=== PATIENT | female | born 1965 | race Hispanic/Latino ===

== ENCOUNTER 2018-04-16 17:46 | Inpatient (IN) | payer SELFPAY, OTHER | END 2018-04-19 18:46 | disposition home or self-care (01) | LOC: EDH 17:46 → EDHIP 17:47 → 4AH 23:29 | DX: I25.10 Atherosclerotic heart disease of native coronary artery without angina pectoris (principal); I10 Essential (primary) hypertension; E66.01 Morbid (severe) obesity due to excess calories; I25.2 Old myocardial infarction ==

== ENCOUNTER 2020-02-11 10:12 | Inpatient (IN) | payer OTHER, SELFPAY ==
[~2020-02-11] VITALS: Ht 152.4 cm; Wt 113.4 kg
[~2020-02-11 10:12] MED LIST: IRBE1TAB65 PO; OMEP40CA13 PO
[2020-02-11] MEDS ORDERED: ONDANSETRON HCL 4 MG/2 ML VIAL ONE ×2 (10:44→15:10)
[2020-02-11 10:47] LABS: BASOPHILS % (AUTO) 0.5 % (0.0-5.0); EOSINOPHILS % (AUTO) 0.3 % (0.0-8.0); HEMATOCRIT 43.2 % (36-48); LYMPHOCYTES % (AUTO) 30.5 % (21.0-51.0); MEAN CORPUSCULAR HEMOGLOBIN 27.3 pg (27.0-33.0); MEAN CORPUSCULAR HGB CONC 33.1 g/dL (32.0-36.0); MEAN CORPUSCULAR VOLUME 82.4 fL (79-99); MONOCYTES % (AUTO) 16.3 % (3.0-13.0); NEUTROPHILS % (AUTO) 50.4 % (40.0-77.0); PLATELET COUNT (AUTO) 287 K/uL (130-400); RED BLOOD CELL COUNT(AUTO) 5.24 MIL/uL (4.00-5.50); RED CELL DISTRIBUTION WIDTH 13.3 % (11.0-15.5); WHITE BLOOD COUNT (AUTO) 6.1 K/uL (4.8-10.8)
[2020-02-11 10:49] LABS: APPEARANCE,URINE Cloudy (CLEAR); BILIRUBIN,URINE Moderate (NEGATIVE); COLOR,URINE Dark Yellow (YELLOW); GLUCOSE, URINE (UA) Negative (NEGATIVE); KETONES,URINE 15 mg/dL (NEGATIVE); LEUKOCYTE ESTERASE ,URINE Negative (NEGATIVE); NITRATE,URINE Negative (NEGATIVE); OCCULT BLOOD,URINE Negative (NEGATIVE); PROTEIN,URINE Trace mg/dL (NEGATIVE)
[2020-02-11 11:01] LABS: ALBUMIN 3.7 g/dL (3.5-5.0); CREATININE 0.9 mg/dL (0.5-1.5); TOTAL PROTEIN, SERUM 8.5 g/dL (6.0-8.3)
[2020-02-11 11:03] LABS: POTASSIUM 2.9 mmol/L (3.5-5.1)
[2020-02-11 11:14] LABS: BACTERIA,URINE Rare /HPF (None Seen); RBC,URINE 0-1 /HPF (0-1); SQUAMOUS EPITHELIAL CELL,UR Rare /HPF (0-2); WBC,URINE 0-1 /HPF (0-1)
[2020-02-11] MEDS ORDERED: LIDOCAINE HCL 2% VISCOUS 15 ML UDCUP ONE (11:32)
[2020-02-11] MEDS ORDERED: PANTOPRAZOLE 40 MG/VIAL ONE (11:33)
[2020-02-11] MEDS ORDERED: MORPHINE SULFATE 2 MG/ML 1ML SYG ONE ×2 (11:33→15:10)
[2020-02-11] MEDS ORDERED: MAGNESIUM HYDROXIDE 30 ML/UDCUP ONE (11:33)
[2020-02-11] MEDS ORDERED: NS-20 MEQ KCL 1000ML 1,000 ML IV ONE ×2 (11:49→15:12)
[2020-02-11] MEDS ORDERED: IOHEXOL-350 75 ML VIAL IV ONE (12:47)
[2020-02-11] MEDS ORDERED: ACETAMINOPHEN 325 MG TAB PO PRN ×2 (16:15)
[2020-02-11] MEDS ORDERED: LIDOCAINE HCL 2% VISCOUS 30 ML, MAG HYDROX/AL HYDROX/SIMETH 30 ML, BELLADONNA-PHENOBARB... PO PRN ×3 (16:15)
[2020-02-11] MEDS ORDERED: MORPHINE SULFATE 4 MG/1ML SYG IV PRN (16:15)
[2020-02-11] MEDS ORDERED: MAG HYDROX/AL HYDROX/SIMETH ES 30 ML SUSP UDCUP PO PRN (16:15)
[2020-02-11] MEDS ORDERED: LIDO 2% VISC 30ML+MAG/AL/SIMETH 30ML+DICYCLOMINE 20MG 10ML PO PRN ×3 (16:30)
[2020-02-11] MEDS ORDERED: COMPOUND PO MISCELLANEOUS 1 EACH MISC MISC PRN (16:30)
[2020-02-11 20:17] LABS: CREATININE 0.7 mg/dL (0.5-1.5); POTASSIUM 3.7 mmol/L (3.5-5.1)
[2020-02-11] MEDS: FAMOTIDINE/PF 20 MG/2 ML VIAL IV SCH (21:00)
[2020-02-11] MEDS ORDERED: FAMOTIDINE/PF 20 MG/2 ML VIAL IV ONE (21:37)
[2020-02-12] MEDS ORDERED: ONDANSETRON HCL 4 MG/2 ML VIAL ONE (00:31)
[2020-02-12 01:30] VITALS: BP 155/71
[2020-02-12] MEDS ORDERED: SODIUM CHLORIDE 0.9% 1000ML 1,000 ML IV ONE ×2 (02:07→21:34)
[2020-02-12] MEDS: MORPHINE SULFATE 2 MG/ML 1ML SYG IV PRN ×2 (02:13→21:38)
[2020-02-12 04:00] VITALS: BP 139/59
[2020-02-12 04:43] LABS: BASOPHILS % (AUTO) 0.4 % (0.0-5.0); EOSINOPHILS % (AUTO) 0.6 % (0.0-8.0); HEMATOCRIT 35.5 % (36-48); LYMPHOCYTES % (AUTO) 34.5 % (21.0-51.0); MEAN CORPUSCULAR HEMOGLOBIN 26.9 pg (27.0-33.0); MEAN CORPUSCULAR HGB CONC 31.5 g/dL (32.0-36.0); MEAN CORPUSCULAR VOLUME 85.3 fL (79-99); MONOCYTES % (AUTO) 17.7 % (3.0-13.0); NEUTROPHILS % (AUTO) 45.1 % (40.0-77.0); PLATELET COUNT (AUTO) 223 K/uL (130-400); RED BLOOD CELL COUNT(AUTO) 4.16 MIL/uL (4.00-5.50); RED CELL DISTRIBUTION WIDTH 13.5 % (11.0-15.5); WHITE BLOOD COUNT (AUTO) 5.3 K/uL (4.8-10.8)
[2020-02-12 04:56] LABS: CREATININE 0.7 mg/dL (0.5-1.5); POTASSIUM 3.3 mmol/L (3.5-5.1)
[2020-02-12 08:46] VITALS: BP 139/81
[2020-02-12] MEDS ORDERED: AMLO-257 PO (10:07)
[2020-02-12] MEDS: FAMOTIDINE/PF 20 MG/2 ML VIAL IV SCH ×3 (10:13→21:37)
[2020-02-12] MEDS: ENOXAPARIN SODIUM 30 MG/0.3 ML SQ SCH (10:13)
[2020-02-12 10:47] LABS: ALBUMIN 2.8 g/dL (3.5-5.0); BILIRUBIN,DIRECT 0.3 mg/dL (0.0-0.3); BILIRUBIN,TOTAL 0.7 mg/dL (0.2-1.0); TOTAL PROTEIN, SERUM 6.3 g/dL (6.0-8.3)
[2020-02-12 11:57] VITALS: BP 144/76
[2020-02-12] MEDS ORDERED: GADODIAMIDE 10 MMOL/20 ML VIAL IV ONE (13:18)
--- NOTE | 2020-02-12 15:16 | NUR ---
RD NOTIFICATION Pt admitted with Hypokalemia and Intractable Nausea. History of Lap Band x 20yrs ago. Intractable nausea x 10 days. Upon visit, Pt reports being able to eat today and hold food down. No signs of food intolerances at this time. Pt with normal consistency BM, although somewhat frequent as per Pt; Recommend to monitor. Pt also reports upper abdomen pain resolved for first time in several days; morphine in place. Monitored labs: K 3.3, Ca 7.0, AST 168, ALT 174, Alk 195, Alb 2.8. Recommend continue GI Soft/ [place] diet at this time. Will monitor and consider 4 to 6 small meals per day. Recommend daily multivitamin as medically feasible RD to continue to monitor. Please notify as additional nutrition concerns arise. Thank you.
[2020-02-12 16:22] VITALS: BP 113/68
--- NOTE | 2020-02-12 16:53 | NUR ---
VERONICA NOTE/IA MET WITH PATIENT AT BEDSIDE. PER PATIENT, LIVES WITH 2 ADULT DAUGHTERS, IS INDEPENDENT WITH ADLS, NO USE OF HOME HEALTH/PROVIDERS OR DME, AND FEELS SAFE TO RETURN HOME. Addendum: 02/12/20 at 1654 by MED SKY RN CM Amended: Links added.
[2020-02-12 20:00] VITALS: BP 147/71
[2020-02-12] MEDS: NS-20 MEQ KCL 1000ML 1,000 ML IV SCH (22:55)
[2020-02-13] VITALS: BP 123/73
[2020-02-13 04:00] VITALS: BP 133/80
[2020-02-13 04:40] LABS: BASOPHILS % (AUTO) 0.5 % (0.0-5.0); EOSINOPHILS % (AUTO) 1.4 % (0.0-8.0); LYMPHOCYTES % (AUTO) 40.1 % (21.0-51.0); MEAN CORPUSCULAR HEMOGLOBIN 27.3 pg (27.0-33.0); MEAN CORPUSCULAR VOLUME 85.4 fL (79-99); MONOCYTES % (AUTO) 17.3 % (3.0-13.0); NEUTROPHILS % (AUTO) 38.9 % (40.0-77.0); PLATELET COUNT (AUTO) 253 K/uL (130-400); RED CELL DISTRIBUTION WIDTH 13.8 % (11.0-15.5); WHITE BLOOD COUNT (AUTO) 4.3 K/uL (4.8-10.8)
[2020-02-13 05:02] LABS: ALBUMIN 2.9 g/dL (3.5-5.0); BILIRUBIN,TOTAL 0.5 mg/dL (0.2-1.0); CREATININE 0.6 mg/dL (0.5-1.5); POTASSIUM 3.5 mmol/L (3.5-5.1)
[2020-02-13 05:31] LABS: TOTAL PROTEIN, SERUM 6.5 g/dL (6.0-8.3)
[2020-02-13] MEDS: NS-20 MEQ KCL 1000ML 1,000 ML IV SCH ×2 (05:45→20:25)
--- NOTE | 2020-02-13 07:58 | NUR ---
DR. FERREIRA IN TO SEE PT.PLAN TO DISCHARGE HOWEVER PT. C/O OF NAUSEA, ORDER TO DC PEPCID AND START ON PROTONIX. WAIT UNTIL THIS PM TO SEE IF FEELS BETTER .
[2020-02-13] MEDS ORDERED: PANT40TA55 PO (07:59)
[2020-02-13 08:00] VITALS: BP 135/73
[2020-02-13 08:15] LABS: HEPATITIS A ANTIBODY IGM Negative (Negative); HEPATITIS B CORE IGM Negative (Negative); HEPATITIS Bs ANTIGEN SCREEN P Negative (Negative)
[2020-02-13] MEDS: PANTOPRAZOLE SODIUM 40 MG TABLET.DR PO SCH (08:20)
[2020-02-13] MEDS: AMLODIPINE BESYLATE 5 MG TAB PO SCH (08:20)
[2020-02-13] MEDS: ENOXAPARIN SODIUM 30 MG/0.3 ML SQ SCH ×2 (08:21→21:47)
--- NOTE | 2020-02-13 11:24 | NUR ---
CONTINUES WITH NAUSEA AND ABD. PAIN. STATES SOON SHE ATE THE NAUSEA CAME BACK.
[2020-02-13] MEDS: ONDANSETRON HCL 4 MG/2 ML VIAL IV PRN (11:57)
[2020-02-13 12:00] VITALS: BP 142/78
[2020-02-13 16:00] VITALS: BP 137/77
--- NOTE | 2020-02-13 16:16 | NUR ---
DR. SKY OFFICE CALLED BACK. REQUESTING INFO.WILL CALL BACK ORDERS.
--- NOTE | 2020-02-13 18:00 | NUR ---
ORDERS RECEIVED FROM DR. SKY. PT. TO SCHEDULED FOR EGD WITH MAC FOR TOMORROW AROUND 1200 NOON. ORDER SEND TO STOCK PARTS FABRICATOR
[2020-02-13 20:39] VITALS: BP 130/71
[2020-02-14] VITALS (14 sets, daily range): BP systolic 114–153; BP diastolic 59–83
[2020-02-14 05:40] LABS: BASOPHILS % (AUTO) 0.3 % (0.0-5.0); EOSINOPHILS % (AUTO) 1.8 % (0.0-8.0); HEMATOCRIT 34.3 % (36-48); LYMPHOCYTES % (AUTO) 36.8 % (21.0-51.0); MEAN CORPUSCULAR HEMOGLOBIN 27.1 pg (27.0-33.0); MEAN CORPUSCULAR HGB CONC 31.5 g/dL (32.0-36.0); MONOCYTES % (AUTO) 18.3 % (3.0-13.0); NEUTROPHILS % (AUTO) 41.6 % (40.0-77.0); PLATELET COUNT (AUTO) 239 K/uL (130-400); RED BLOOD CELL COUNT(AUTO) 3.99 MIL/uL (4.00-5.50); RED CELL DISTRIBUTION WIDTH 13.9 % (11.0-15.5); WHITE BLOOD COUNT (AUTO) 3.3 K/uL (4.8-10.8)
[2020-02-14] MEDS: PANTOPRAZOLE SODIUM 40 MG TABLET.DR PO SCH ×2 (05:42→08:09)
[2020-02-14 06:03] LABS: CREATININE 0.7 mg/dL (0.5-1.5); POTASSIUM 3.6 mmol/L (3.5-5.1)
[2020-02-14] MEDS: NS-20 MEQ KCL 1000ML 1,000 ML IV SCH ×2 (07:20→19:32)
[2020-02-14] MEDS: AMLODIPINE BESYLATE 5 MG TAB PO SCH (08:09)
[2020-02-14] MEDS: ONDANSETRON HCL 4 MG/2 ML VIAL IV PRN (08:09)
--- NOTE | 2020-02-14 08:27 | NUR ---
AM SHIFT ASSESSMENT:NPO FOR EGD TODAY.
--- NOTE | 2020-02-14 11:05 | NUR ---
TO GI LAB NOW.
[2020-02-14] MEDS ORDERED: PROPOFOL 10 MG/ML 20ML VIAL IV ONE (11:39)
--- NOTE | 2020-02-14 12:30 | NUR ---
POST OP NOTE: BACK FROM GI LAB, AWAKE, HUNGRY .POST OP V/S STARTED. ASST. TO BR FOR A VOID.
--- NOTE | 2020-02-14 13:20 | NUR ---
FULL LIQ, DIET ORDERED AND TOLERATED.
--- NOTE | 2020-02-14 14:30 | NUR ---
RAD. DEPT. CALLED AND SAID UPPER GIWITH SM BOWEL FOLLOW THROUGH WOULD NOT BE DONE UNTIL SUNDAY. WILL LET DR. FERREIRA KNOW AN SEE IF HE WANTS TO CX. NPO STATUS.
[2020-02-15 03:57] VITALS: BP 118/51
[2020-02-15 05:55] LABS: BASOPHILS % (AUTO) 0.3 % (0.0-5.0); EOSINOPHILS % (AUTO) 1.2 % (0.0-8.0); HEMATOCRIT 33.1 % (36-48); LYMPHOCYTES % (AUTO) 39.6 % (21.0-51.0); MEAN CORPUSCULAR HEMOGLOBIN 27.1 pg (27.0-33.0); MEAN CORPUSCULAR HGB CONC 31.4 g/dL (32.0-36.0); MEAN CORPUSCULAR VOLUME 86.2 fL (79-99); PLATELET COUNT (AUTO) 237 K/uL (130-400); RED BLOOD CELL COUNT(AUTO) 3.84 MIL/uL (4.00-5.50); RED CELL DISTRIBUTION WIDTH 13.9 % (11.0-15.5); WHITE BLOOD COUNT (AUTO) 3.2 K/uL (4.8-10.8)
[2020-02-15 06:36] LABS: CREATININE 0.6 mg/dL (0.5-1.5)
[2020-02-15 08:00] VITALS: BP 119/78
[2020-02-15] MEDS: AMLODIPINE BESYLATE 5 MG TAB PO SCH (09:02)
[2020-02-15] MEDS: NS-20 MEQ KCL 1000ML 1,000 ML IV SCH ×2 (10:29→20:15)
[2020-02-15 12:00] VITALS: BP 125/57
[2020-02-15 16:00] VITALS: BP 152/74
[2020-02-15 20:04] VITALS: BP 122/64
--- NOTE | 2020-02-15 21:00 | NUR ---
CALLED [facility] FOR PATIENT'S NS WITH 20 MEQ OF KCL SINCE HER POTASSIUM WAS 4 IN THE AM ON 02/15/20. SHE ORDERED TO CONTINUE THOSE FLUIDS BUT CHANGE THE RATE FROM 100 ML/HR TO 50 ML/HR.
[2020-02-16 00:54] VITALS: BP 135/69
[2020-02-16 03:57] VITALS: BP 146/69
[2020-02-16] MEDS: PANTOPRAZOLE SODIUM 40 MG TABLET.DR PO SCH (05:03)
[2020-02-16 07:37] LABS: MEAN CORPUSCULAR HEMOGLOBIN 27.2 pg (27.0-33.0); MEAN CORPUSCULAR HGB CONC 31.4 g/dL (32.0-36.0); MEAN CORPUSCULAR VOLUME 86.5 fL (79-99); PLATELET COUNT (AUTO) 264 K/uL (130-400); RED BLOOD CELL COUNT(AUTO) 4.16 MIL/uL (4.00-5.50); WHITE BLOOD COUNT (AUTO) 3.2 K/uL (4.8-10.8)
[2020-02-16 07:49] LABS: CREATININE 0.7 mg/dL (0.5-1.5); POTASSIUM 4.1 mmol/L (3.5-5.1)
[2020-02-16 08:00] VITALS: BP 142/82
[2020-02-16] MEDS: AMLODIPINE BESYLATE 5 MG TAB PO SCH (08:44)
[2020-02-16 09:43] LABS: BASOPHILS % (MANUAL) 1 % (0-2); LYMPHOCYTES % (MANUAL) 29 % (22-44); MAN.DIFF COMMENT-IMPRESSION MANUAL DIFFERENTIAL; MONOCYTES % (MANUAL) 15 % (2-9); SEGMENTED NEUTROPHILS % 55 % (40-70)
[2020-02-16 09:44] LABS: PLATELET MORPHOLOGY COMMENT ADEQUATE
[2020-02-16 12:00] VITALS: BP 144/76
[2020-02-16 12:48] VITALS: BP 144/76
[2020-02-16] MEDS ORDERED: FLU VACC QS2020-21(6MOS UP)/PF 60 MCG/0.5 ML ML IM ONE ×2 (15:25→15:30)
--- NOTE | 2020-02-16 15:27 | NUR ---
FLU INJECTION FLUZONE QUADRIVALENT L: [id number] E: aug 16
[2020-02-16] MEDS ORDERED: FLU VACC QS2020-21(6MOS UP)/PF 60 MCG/0.5 ML ML IM SCH (15:30)
--- NOTE | 2020-02-16 15:49 | NUR ---
D/C PT IS AA/OX4 NO COMPLAINS OF CP, SOB, OR NAUSEA, PT RECIEVED FLU SHOT AND F/U APPT FOR DR. SEAY. ALSO SHE IS AWARE TO MAKE APPT WITH PRIMARY IN 2-3 DAYS. RX SCRIPT GIVEN TO PATIENT DAUGHTER IS ALSO AWARE OF D/C INSTRUCTIONS. NO COMPLICATIONS UPON D.C PT LEFT IN PVT CAR BY WHEELCHAIR.
== END 2020-02-16 15:40 | disposition home or self-care (01) | DRG 641 ==
LOC: EDH 10:12 → EDHIP 10:13 → 3CH 02-12 00:07
PROVIDERS: ADMIT Hospitalist; ATTEND Hospitalist
PROC: 0DB58ZX Excision of Esophagus, Via Natural or Artificial Opening Endoscopic, Diagnostic (ICD-10-PCS; principal; 2020-02-14)
PROC: 0DB68ZX Excision of Stomach, Via Natural or Artificial Opening Endoscopic, Diagnostic (ICD-10-PCS; 2020-02-14)
PROC: 3E02340 Introduction of Influenza Vaccine into Muscle, Percutaneous Approach (ICD-10-PCS; 2020-02-16)
DX: E87.6 Hypokalemia (principal); Z68.42 Body mass index [BMI] 45.0-49.9, adult; K95.09 Other complications of gastric band procedure; E66.01 Morbid (severe) obesity due to excess calories; E03.9 Hypothyroidism, unspecified; I10 Essential (primary) hypertension; K29.50 Unspecified chronic gastritis without bleeding; R74.8 Abnormal levels of other serum enzymes; Y84.8 Other medical procedures as the cause of abnormal reaction of the patient, or of later complication, without mention of misadventure at the time of the procedure; Z23 Encounter for immunization; Z80.0 Family history of malignant neoplasm of digestive organs; Z80.49 Family history of malignant neoplasm of other genital organs; Z82.49 Family history of ischemic heart disease and other diseases of the circulatory system; Z90.710 Acquired absence of both cervix and uterus; Z98.84 Bariatric surgery status; Z83.3 Family history of diabetes mellitus; Z82.5 Family history of asthma and other chronic lower respiratory diseases
CPT/HCPCS: 36415; 43239; 74177; 74181; 80048; 80053; 80074; 80076; 81001; 82150; 83690; 85025; 93005; A9579; C9113; G0378; J1650; J2405; J2704; J3480; J3490; J7030; Q2035; Q9967

== ENCOUNTER 2021-03-07 06:38 | Day surgery (SDC) | payer OTHER ==
[~2021-03-07] VITALS: Ht 154.9 cm; Wt 114.8 kg
[~2021-03-07 06:38] MED LIST changes: +AMLO-257 PO; -OMEP40CA13 PO; +PANT40TA55 PO
[2021-03-07] MEDS ORDERED: 0.9%NACL 1000ML 1,000 ML IV ONE (07:15)
[2021-03-07 08:06] VITALS: BP 146/74
[2021-03-07] MEDS ORDERED: PROPOFOL 10 MG/ML 20ML VIAL IV ONE (08:54)
[2021-03-07 09:07] VITALS: BP 101/47
[2021-03-07 09:12] VITALS: BP 118/61
[2021-03-07 09:17] VITALS: BP 123/69
[2021-03-07 09:22] VITALS: BP 140/78
[2021-03-07 09:27] VITALS: BP 144/70
== END 2021-03-07 09:30 | disposition home or self-care (01) ==
LOC: ENDO 06:38 → DAH 06:38 → ENDO 09:30
PROVIDERS: ATTEND Surgery
DX: K21.9 Gastro-esophageal reflux disease without esophagitis (principal); Z20.822 Contact with and (suspected) exposure to COVID-19; K29.50 Unspecified chronic gastritis without bleeding; K31.89 Other diseases of stomach and duodenum; I10 Essential (primary) hypertension; E66.01 Morbid (severe) obesity due to excess calories; Z90.49 Acquired absence of other specified parts of digestive tract; Z90.710 Acquired absence of both cervix and uterus; Z98.84 Bariatric surgery status; Z82.49 Family history of ischemic heart disease and other diseases of the circulatory system; Z83.3 Family history of diabetes mellitus; Z98.890 Other specified postprocedural states; Z80.0 Family history of malignant neoplasm of digestive organs; Z68.42 Body mass index [BMI] 45.0-49.9, adult
CPT/HCPCS: 43239; 87635; A4215 ×2; A4221; A4222; A4223; A4606; A4620; A4663; C9803; J2704; J7030; 43235

== ENCOUNTER 2021-04-11 06:32 | Inpatient (IN) | payer OTHER, SELFPAY ==
[2021-04-04 08:54] LABS: BASOPHILS % (AUTO) 0.4 % (0.0-5.0); EOSINOPHILS % (AUTO) 1.4 % (0.0-8.0); HEMATOCRIT 37.2 % (36-48); LYMPHOCYTES % (AUTO) 25.8 % (21.0-51.0); MEAN CORPUSCULAR HEMOGLOBIN 26.7 pg (27.0-33.0); MEAN CORPUSCULAR HGB CONC 31.2 g/dL (32.0-36.0); MEAN CORPUSCULAR VOLUME 85.5 fL (79-99); MONOCYTES % (AUTO) 5.2 % (3.0-13.0); NEUTROPHILS % (AUTO) 66.1 % (40.0-77.0); PLATELET COUNT (AUTO) 242 K/uL (130-400); RED BLOOD CELL COUNT(AUTO) 4.35 MIL/uL (4.00-5.50); RED CELL DISTRIBUTION WIDTH 14.1 % (11.0-15.5); WHITE BLOOD COUNT (AUTO) 7.1 K/uL (4.8-10.8)
[2021-04-04 09:03] LABS: CREATININE 0.7 mg/dL (0.5-1.5); POTASSIUM 3.5 mmol/L (3.5-5.1)
[2021-04-04 09:06] LABS: PROTHROMBIN TIME 10.9 SEC (9.6-11.6)
[2021-04-04 09:08] LABS: PARTIAL THROMBOPLASTIN TIME 26.8 SEC (26.3-35.5)
[2021-04-08 11:49] VITALS: BP 150/76
[~2021-04-11] VITALS: Ht 154.9 cm; Wt 109.3 kg
[2021-04-11] VITALS (24 sets, daily range): BP systolic 80–152; BP diastolic 38–83
[2021-04-11] MEDS ORDERED: BUPIVACAINE/PF 0.5% 30ML VIAL ONE (07:27)
[2021-04-11] MEDS ORDERED: LACTATED RINGERS 1000ML 1,000 ML IV ONE (07:32)
[2021-04-11] MEDS ORDERED: CEFAZOLIN SODIUM 1 GM VIAL ONE (07:32)
[2021-04-11] MEDS ORDERED: LIDOCAINE PF 100MG/5ML (2%) SYRINGE 5ML ONE (07:33)
[2021-04-11] MEDS ORDERED: GLYCOPYRROLATE 1 MG/5 ML SYRINGE ONE (07:33)
[2021-04-11] MEDS ORDERED: PROPOFOL 10 MG/ML 20ML VIAL IV ONE (07:33)
[2021-04-11] MEDS ORDERED: NEOSTIGMINE 5MG/5ML SYR IV ONE (07:33)
[2021-04-11] MEDS ORDERED: MIDAZOLAM HCL 1 MG/ML 2ML VIAL ONE (07:34)
[2021-04-11] MEDS ORDERED: FENTANYL CITRATE PF 50 MCG/1 ML 5ML AMP IV ONE (07:34)
[2021-04-11] MEDS ORDERED: ROCURONIUM 10MG/1ML SYR 10 MG/ML ML ONE ×2 (07:34→09:13)
[2021-04-11] MEDS ORDERED: DEXMEDETOMIDINE HCL 200 MCG/2 ML VIAL IV ONE ×2 (07:42→08:01)
[2021-04-11] MEDS ORDERED: CEFAZOLIN SODIUM 2 GM VIAL IV ONE (08:50)
[2021-04-11] MEDS ORDERED: ONDANSETRON 4MG INJ ONE (12:00)
[2021-04-11] MEDS ORDERED: MEPERIDINE-PF 25 MG/ML SYG ONE ×2 (12:04→12:17)
[2021-04-11] MEDS: KETOROLAC 30MG VIAL (30MG/ML) IV PRN ×2 (13:33→22:18)
[2021-04-11] MEDS: CEFAZOLIN SODIUM 1 GM VIAL IVP SCH ×2 (15:10→22:04)
[2021-04-11] MEDS: MORPHINE 4 MG SYG IVP PRN ×2 (15:11→20:28)
[2021-04-11] MEDS: LACTATED RINGERS 1000ML 1,000 ML IV SCH (15:25)
[2021-04-11] MEDS: FAMOTIDINE 20MG VIAL IV SCH (20:27)
[2021-04-12] VITALS: BP 164/83
[2021-04-12] MEDS: MORPHINE 4 MG SYG IVP PRN ×4 (03:37→17:11)
[2021-04-12 04:00] VITALS: BP 160/80
[2021-04-12] MEDS: KETOROLAC 30MG VIAL (30MG/ML) IV PRN ×3 (06:31→20:06)
[2021-04-12] MEDS: FAMOTIDINE 20MG VIAL IV SCH ×2 (07:40→20:05)
[2021-04-12 07:53] VITALS: BP 158/80
[2021-04-12] MEDS: ONDANSETRON 4MG INJ IVP PRN ×2 (08:41→16:23)
[2021-04-12 11:11] VITALS: BP 162/99
[2021-04-12] MEDS: ENOXAPARIN SODIUM 40 MG/0.4 ML SYRINGE SQ SCH (14:23)
[2021-04-12 16:17] VITALS: BP 163/103
[2021-04-12] MEDS ORDERED: AMLODIPINE 2.5 MG TAB PO SCH (16:30)
[2021-04-12] MEDS ORDERED: AMLODIPINE 2.5 MG TAB PO ONE (16:59)
[2021-04-12 19:00] VITALS: BP 134/72
[2021-04-12] MEDS: LACTATED RINGERS 1000ML 1,000 ML IV SCH (20:10)
[2021-04-13] VITALS (7 sets, daily range): BP systolic 93–155; BP diastolic 42–73
[2021-04-13] MEDS: MORPHINE 4 MG SYG IVP PRN ×4 (00:30→15:11)
[2021-04-13] MEDS: KETOROLAC 30MG VIAL (30MG/ML) IV PRN (02:23)
[2021-04-13] MEDS: LACTATED RINGERS 1000ML 1,000 ML IV SCH ×3 (05:30→19:43)
[2021-04-13] MEDS: LOSARTAN/HYDROCHLOROTHIAZIDE 50-12.5MG TABLET PO SCH (09:00)
[2021-04-13] MEDS: AMLODIPINE 2.5 MG TAB PO SCH (09:00)
[2021-04-13 09:18] LABS: HEMATOCRIT 33.5 % (36-48); MEAN CORPUSCULAR HGB CONC 30.4 g/dL (32.0-36.0); MEAN CORPUSCULAR VOLUME 88.6 fL (79-99); PLATELET COUNT (AUTO) 248 K/uL (130-400); RED BLOOD CELL COUNT(AUTO) 3.78 MIL/uL (4.00-5.50); RED CELL DISTRIBUTION WIDTH 14.9 % (11.0-15.5); WHITE BLOOD COUNT (AUTO) 22.3 K/uL (4.8-10.8)
[2021-04-13] MEDS ORDERED: 0.9% NACL 500ML IV.SOLN 500 ML IV ONE (09:25)
[2021-04-13 09:26] LABS: CREATININE 2.9 mg/dL (0.5-1.5); POTASSIUM 4.1 mmol/L (3.5-5.1)
[2021-04-13 09:31] LABS: ALBUMIN 2.8 g/dL (3.5-5.0); BILIRUBIN,TOTAL 0.9 mg/dL (0.2-1.0)
[2021-04-13 09:57] LABS: BAND NEUTROPHILS % (MANUAL) 6 % (0-2); LYMPHOCYTES % (MANUAL) 7 % (22-44); MAN.DIFF COMMENT-IMPRESSION MANUAL DIFFERENTIAL; MONOCYTES % (MANUAL) 5 % (2-9); PLATELET MORPHOLOGY COMMENT ADEQUATE; SEGMENTED NEUTROPHILS % 82 % (40-70)
[2021-04-13] MEDS: FAMOTIDINE 20MG VIAL IV SCH ×2 (10:05→19:37)
[2021-04-13] MEDS ORDERED: ZOSYN 3.375GM +NS 50ML IV SCH (10:30)
[2021-04-13] MEDS: ZOSYN 3.375GM+NS 50ML 50 ML IV SCH ×2 (12:00→19:37)
[2021-04-13] MEDS ORDERED: LACTATED RINGERS 1000ML IV ONE (18:30)
[2021-04-13] MEDS: ENOXAPARIN SODIUM 40 MG/0.4 ML SYRINGE SQ SCH (18:40)
[2021-04-14] MEDS: HYDROMORPHONE 1 MG INJ IVP PRN ×5 (00:04→15:30)
[2021-04-14 04:00] VITALS: BP 150/69
[2021-04-14 04:12] LABS: BASOPHILS % (AUTO) 0.1 % (0.0-5.0); HEMATOCRIT 30.9 % (36-48); LYMPHOCYTES % (AUTO) 5.7 % (21.0-51.0); MEAN CORPUSCULAR HEMOGLOBIN 26.8 pg (27.0-33.0); MEAN CORPUSCULAR HGB CONC 30.1 g/dL (32.0-36.0); MONOCYTES % (AUTO) 5.7 % (3.0-13.0); NEUTROPHILS % (AUTO) 87.5 % (40.0-77.0); PLATELET COUNT (AUTO) 238 K/uL (130-400); RED BLOOD CELL COUNT(AUTO) 3.47 MIL/uL (4.00-5.50); RED CELL DISTRIBUTION WIDTH 15.4 % (11.0-15.5); WHITE BLOOD COUNT (AUTO) 18.1 K/uL (4.8-10.8)
[2021-04-14 04:27] LABS: CREATININE 2.7 mg/dL (0.5-1.5); POTASSIUM 4.1 mmol/L (3.5-5.1)
[2021-04-14] MEDS: LACTATED RINGERS 1000ML 1,000 ML IV SCH ×3 (05:02→20:47)
[2021-04-14 08:00] VITALS: BP 131/95
[2021-04-14] MEDS: ENOXAPARIN SODIUM 40 MG/0.4 ML SYRINGE SQ SCH (09:00)
[2021-04-14] MEDS: FAMOTIDINE 20MG VIAL IV SCH ×2 (09:09→20:46)
[2021-04-14] MEDS: ZOSYN 3.375GM+NS 50ML 50 ML IV SCH ×2 (09:10→20:46)
[2021-04-14] MEDS: LOSARTAN/HYDROCHLOROTHIAZIDE 50-12.5MG TABLET PO SCH (09:10)
[2021-04-14] MEDS: AMLODIPINE 2.5 MG TAB PO SCH (09:10)
[2021-04-14] MEDS ORDERED: DIATR MEGLU/DIATRIZOATE SODIUM 30 ML BOTTLE ONE (11:23)
[2021-04-14 12:05] VITALS: BP 127/67
[2021-04-14 16:00] VITALS: BP 112/62
[2021-04-14] MEDS ORDERED: LACTATED RINGERS 1000ML IV ONE (18:00)
[2021-04-14 19:00] VITALS: BP 111/65
[2021-04-14] MEDS: KETOROLAC 30MG VIAL (30MG/ML) IV PRN (20:47)
[2021-04-15] VITALS: BP 121/62
[2021-04-15] MEDS: HYDROMORPHONE 1 MG INJ IVP PRN ×6 (00:09→20:57)
[2021-04-15] MEDS ORDERED: LACTATED RINGERS 1000ML IV ONE (01:30)
[2021-04-15 04:00] VITALS: BP 145/73
[2021-04-15] MEDS: LACTATED RINGERS 1000ML 1,000 ML IV SCH ×3 (04:55→21:30)
[2021-04-15 05:01] LABS: HEMATOCRIT 27.1 % (36-48); MEAN CORPUSCULAR HEMOGLOBIN 26.5 pg (27.0-33.0); MEAN CORPUSCULAR HGB CONC 30.3 g/dL (32.0-36.0); MEAN CORPUSCULAR VOLUME 87.4 fL (79-99); RED BLOOD CELL COUNT(AUTO) 3.1 MIL/uL (4.00-5.50); RED CELL DISTRIBUTION WIDTH 15.8 % (11.0-15.5); WHITE BLOOD COUNT (AUTO) 17.6 K/uL (4.8-10.8)
[2021-04-15 05:13] LABS: ALBUMIN 2.1 g/dL (3.5-5.0); TOTAL PROTEIN, SERUM 6.7 g/dL (6.0-8.3)
[2021-04-15 07:30] VITALS: BP 163/89
[2021-04-15] MEDS: ONDANSETRON 4MG INJ IVP PRN (08:25)
[2021-04-15] MEDS: LOSARTAN/HYDROCHLOROTHIAZIDE 50-12.5MG TABLET PO SCH (09:00)
[2021-04-15] MEDS: ENOXAPARIN SODIUM 40 MG/0.4 ML SYRINGE SQ SCH (09:00)
[2021-04-15] MEDS ORDERED: FUROSEMIDE 40MG VIAL IV SCH (09:00)
[2021-04-15] MEDS ORDERED: 0.9%NACL 1000ML 1,000 ML IV ONE (09:00)
[2021-04-15] MEDS: FAMOTIDINE 20MG VIAL IV SCH ×2 (09:07→20:57)
[2021-04-15] MEDS: AMLODIPINE 2.5 MG TAB PO SCH (09:07)
[2021-04-15] MEDS: ZOSYN 3.375GM+NS 50ML 50 ML IV SCH ×2 (09:09→20:57)
[2021-04-15 11:00] VITALS: BP 129/82
[2021-04-15 16:05] VITALS: BP 142/75
[2021-04-15 17:50] LABS: APPEARANCE,URINE SL CLOUDY (CLEAR); BILIRUBIN,URINE SMALL (NEGATIVE); COLOR,URINE YELLOW (YELLOW); GLUCOSE, URINE (UA) NEGATIVE (NEGATIVE); KETONES,URINE NEGATIVE (NEGATIVE); LEUKOCYTE ESTERASE ,URINE NEGATIVE (NEGATIVE); NITRATE,URINE NEGATIVE (NEGATIVE); OCCULT BLOOD,URINE MODERATE (NEGATIVE); PH,URINE 5.5 (5.0-8.0); PROTEIN,URINE 30 mg/dL (NEGATIVE); UROBILINOGEN,URINE 0.2 mg/dL (0.2-1.0)
[2021-04-15 17:57] LABS: BACTERIA,URINE Few /HPF (None Seen); WBC,URINE 0-1 /HPF (0-1)
[2021-04-15 17:58] LABS: AMORPHOUS SEDIMENT,UR Few /LPF (None Seen); SQUAMOUS EPITHELIAL CELL,UR Rare /HPF (0-2)
[2021-04-15 18:25] LABS: CREATININE 3.7 mg/dL (0.5-1.5); POTASSIUM 3.7 mmol/L (3.5-5.1)
[2021-04-15 18:28] LABS: ALBUMIN 2.2 g/dL (3.5-5.0); PHOSPHORUS 4.5 mg/dL (2.5-4.9)
[2021-04-15 20:23] VITALS: BP 161/76
[2021-04-16] VITALS (7 sets, daily range): BP systolic 121–166; BP diastolic 69–90
[2021-04-16] MEDS: HYDROMORPHONE 1 MG INJ IVP PRN ×3 (00:05→09:56)
[2021-04-16] MEDS: ONDANSETRON 4MG INJ IVP PRN ×2 (00:05→23:40)
[2021-04-16 05:09] LABS: ALBUMIN 2.1 g/dL (3.5-5.0); PHOSPHORUS 4.9 mg/dL (2.5-4.9); POTASSIUM 3.4 mmol/L (3.5-5.1)
[2021-04-16] MEDS: LOSARTAN/HYDROCHLOROTHIAZIDE 50-12.5MG TABLET PO SCH ×2 (09:00→09:53)
[2021-04-16] MEDS: FAMOTIDINE 20MG VIAL IV SCH ×2 (09:53→19:56)
[2021-04-16] MEDS: FUROSEMIDE 20 MG TABLET PO SCH (09:53)
[2021-04-16] MEDS: ZOSYN 3.375GM+NS 50ML 50 ML IV SCH ×2 (09:53→19:56)
[2021-04-16] MEDS: AMLODIPINE 2.5 MG TAB PO SCH (09:53)
[2021-04-16] MEDS: ENOXAPARIN SODIUM 40 MG/0.4 ML SYRINGE SQ SCH (10:16)
[2021-04-16] MEDS: APAP/CODEINE 120/12MG 5ML PO PRN ×3 (14:47→23:31)
[2021-04-17] MEDS: HYDROMORPHONE 1 MG INJ IVP PRN ×3 (03:26→21:50)
[2021-04-17 03:49] VITALS: BP 152/76
[2021-04-17 05:07] LABS: BASOPHILS % (AUTO) 0.3 % (0.0-5.0); EOSINOPHILS % (AUTO) 0.3 % (0.0-8.0); HEMATOCRIT 27.3 % (36-48); LYMPHOCYTES % (AUTO) 7.9 % (21.0-51.0); MEAN CORPUSCULAR HEMOGLOBIN 27.2 pg (27.0-33.0); MEAN CORPUSCULAR HGB CONC 31.5 g/dL (32.0-36.0); MEAN CORPUSCULAR VOLUME 86.4 fL (79-99); MONOCYTES % (AUTO) 8.1 % (3.0-13.0); NEUTROPHILS % (AUTO) 81.5 % (40.0-77.0); PLATELET COUNT (AUTO) 260 K/uL (130-400); RED BLOOD CELL COUNT(AUTO) 3.16 MIL/uL (4.00-5.50); RED CELL DISTRIBUTION WIDTH 15.4 % (11.0-15.5); WHITE BLOOD COUNT (AUTO) 16.1 K/uL (4.8-10.8)
[2021-04-17 05:25] LABS: ALBUMIN 1.9 g/dL (3.5-5.0); BILIRUBIN,TOTAL 1.3 mg/dL (0.2-1.0); CREATININE 1.8 mg/dL (0.5-1.5); TOTAL PROTEIN, SERUM 6.6 g/dL (6.0-8.3)
[2021-04-17 05:27] LABS: POTASSIUM 2.7 mmol/L (3.5-5.1)
[2021-04-17] MEDS ORDERED: POTASSIUM CHLORIDE 20MEQ/100ML 100 ML IV ONE (05:41)
[2021-04-17] MEDS ORDERED: LIDOCAINE HCL-MPF 1% 2ML VIAL ONE (05:41)
[2021-04-17] MEDS: ONDANSETRON 4MG INJ IVP PRN ×3 (05:48→18:31)
[2021-04-17 07:30] VITALS: BP 150/86
[2021-04-17] MEDS: FAMOTIDINE 20MG VIAL IV SCH ×2 (08:07→21:36)
[2021-04-17] MEDS: AMLODIPINE 2.5 MG TAB PO SCH (08:07)
[2021-04-17] MEDS: FUROSEMIDE 20 MG TABLET PO SCH (08:08)
[2021-04-17] MEDS: ENOXAPARIN SODIUM 40 MG/0.4 ML SYRINGE SQ SCH (08:10)
[2021-04-17] MEDS: ZOSYN 3.375GM+NS 50ML 50 ML IV SCH ×2 (08:14→21:36)
[2021-04-17 11:00] VITALS: BP 158/75
[2021-04-17 16:00] VITALS: BP 156/77
[2021-04-17 20:04] VITALS: BP 161/72
[2021-04-17] MEDS: NS-20 MEQ KCL 1000ML 1,000 ML IV SCH (21:35)
[2021-04-17] MEDS: METOCLOPRAMIDE 10 MG/2 ML VIAL IVP PRN (21:36)
[2021-04-17 23:51] VITALS: BP 155/87
[2021-04-18] MEDS: HYDROMORPHONE 1 MG INJ IVP PRN ×3 (04:01→17:02)
[2021-04-18 04:21] VITALS: BP 146/70
[2021-04-18 05:31] LABS: CREATININE 1.1 mg/dL (0.5-1.5)
[2021-04-18 05:34] LABS: POTASSIUM 2.4 mmol/L (3.5-5.1)
[2021-04-18] MEDS: POTASSIUM CHLORIDE 20 MEQ/100 ML BAG IV SCH ×2 (06:11→09:27)
[2021-04-18 07:30] VITALS: BP 161/83
[2021-04-18] MEDS ORDERED: LIDOCAINE HCL-MPF 1% 2ML VIAL ONE (08:52)
[2021-04-18] MEDS ORDERED: POTASSIUM CHLORIDE 10% ELIXIR 20 MEQ/15 ML UDCUP PO ONE (09:00)
[2021-04-18] MEDS: FAMOTIDINE 20MG VIAL IV SCH ×2 (09:27→20:22)
[2021-04-18] MEDS: ZOSYN 3.375GM+NS 50ML 50 ML IV SCH ×2 (09:27→21:39)
[2021-04-18] MEDS ORDERED: DIATR MEGLU/DIATRIZOATE SODIUM 30 ML BOTTLE ONE (10:13)
[2021-04-18 11:00] VITALS: BP 173/81
[2021-04-18] MEDS: AMLODIPINE 2.5 MG TAB PO SCH (11:28)
[2021-04-18] MEDS: ENOXAPARIN SODIUM 40 MG/0.4 ML SYRINGE SQ SCH (11:28)
[2021-04-18] MEDS: LOSARTAN/HYDROCHLOROTHIAZIDE 50-12.5MG TABLET PO SCH (11:28)
[2021-04-18] MEDS: ONDANSETRON 4MG INJ IVP PRN (13:43)
[2021-04-18 15:20] VITALS: BP 143/60
[2021-04-18] MEDS: NS-20 MEQ KCL 1000ML 1,000 ML IV SCH ×2 (17:00→19:27)
[2021-04-18 20:00] VITALS: BP 125/56
[2021-04-18] MEDS ORDERED: POTASSIUM CHLORIDE 10% ELIXIR 20 MEQ/15 ML UDCUP ONE ×2 (21:34→21:37)
[2021-04-18] MEDS: APAP/CODEINE 120/12MG 5ML PO PRN (23:15)
[2021-04-19] VITALS (7 sets, daily range): BP systolic 130–165; BP diastolic 62–95
[2021-04-19] MEDS: ONDANSETRON 4MG INJ IVP PRN ×2 (01:35→20:13)
[2021-04-19] MEDS ORDERED: HYDROMORPHONE 1 MG INJ ONE (01:58)
[2021-04-19] MEDS ORDERED: HYDROMORPHONE 1 MG INJ IVP PRN (02:00)
[2021-04-19] MEDS: NS-20 MEQ KCL 1000ML 1,000 ML IV SCH (06:19)
[2021-04-19 06:29] LABS: HEMATOCRIT 27.5 % (36-48); MEAN CORPUSCULAR HEMOGLOBIN 26.4 pg (27.0-33.0); MEAN CORPUSCULAR HGB CONC 30.5 g/dL (32.0-36.0); MEAN CORPUSCULAR VOLUME 86.5 fL (79-99); RED BLOOD CELL COUNT(AUTO) 3.18 MIL/uL (4.00-5.50); RED CELL DISTRIBUTION WIDTH 15.2 % (11.0-15.5); WHITE BLOOD COUNT (AUTO) 19.1 K/uL (4.8-10.8)
[2021-04-19 06:38] LABS: CREATININE 0.8 mg/dL (0.5-1.5); MAGNESIUM 1.7 mg/dL (1.80-2.40)
[2021-04-19 06:42] LABS: POTASSIUM 2.9 mmol/L (3.5-5.1)
[2021-04-19] MEDS ORDERED: KCL 20 MEQ ERTAB PO PRN (07:00)
[2021-04-19] MEDS: MAGNESIUM 2GM PREMIX 50ML 50 ML IV PRN (08:08)
[2021-04-19 08:34] LABS: AMYLASE 48 U/L (25-115); LIPASE 87 U/L (114-286)
[2021-04-19] MEDS: ZOSYN 3.375GM+NS 50ML 50 ML IV SCH ×2 (09:18→20:20)
[2021-04-19] MEDS: LOSARTAN/HYDROCHLOROTHIAZIDE 50-12.5MG TABLET PO SCH (09:18)
[2021-04-19] MEDS: AMLODIPINE 2.5 MG TAB PO SCH (09:19)
[2021-04-19] MEDS: FAMOTIDINE 20MG VIAL IV SCH ×2 (09:19→20:15)
[2021-04-19] MEDS: ENOXAPARIN SODIUM 40 MG/0.4 ML SYRINGE SQ SCH (09:19)
[2021-04-19] MEDS: FLUCONAZOLE 200 MG/NS 100 ML 100 ML IV SCH (10:29)
[2021-04-19] MEDS ORDERED: CALCIUM GLUC 1GM 1 GM in 0.9%NACL 100ML 100 ML IV SCH (10:30)
[2021-04-19] MEDS: POTASSIUM CHLORIDE 20MEQ/100ML 100 ML IV PRN (10:30)
[2021-04-19] MEDS ORDERED: FUROSEMIDE 40MG VIAL IV SCH (15:00)
[2021-04-19] MEDS ORDERED: HYDROCODONE/ACETAMINOPHEN 5/325 MG TAB PO PRN (15:30)
[2021-04-19] MEDS: APAP/CODEINE 120/12MG 5ML PO PRN (15:34)
[2021-04-19] MEDS ORDERED: SPIRONOLACTONE 25 MG TAB PO SCH (17:30)
[2021-04-19] MEDS: METOPROLOL TARTRATE 25 MG TAB PO SCH (20:19)
[2021-04-19] MEDS: SPIRONOLACTONE 25 MG TAB PO SCH (21:00)
[2021-04-19] MEDS: HYDROCODONE/ACETAMINOPHEN 5/325 MG TAB PO PRN (22:03)
[2021-04-20 04:21] VITALS: BP 159/78
[2021-04-20 05:13] LABS: BASOPHILS % (AUTO) 0.8 % (0.0-5.0); EOSINOPHILS % (AUTO) 0.3 % (0.0-8.0); HEMATOCRIT 28.5 % (36-48); LYMPHOCYTES % (AUTO) 8.9 % (21.0-51.0); MEAN CORPUSCULAR HEMOGLOBIN 27.5 pg (27.0-33.0); MEAN CORPUSCULAR HGB CONC 31.2 g/dL (32.0-36.0); NEUTROPHILS % (AUTO) 72.8 % (40.0-77.0); PLATELET COUNT (AUTO) 302 K/uL (130-400); RED BLOOD CELL COUNT(AUTO) 3.24 MIL/uL (4.00-5.50); RED CELL DISTRIBUTION WIDTH 15.5 % (11.0-15.5); WHITE BLOOD COUNT (AUTO) 20.2 K/uL (4.8-10.8)
[2021-04-20 05:42] LABS: ALBUMIN 1.9 g/dL (3.5-5.0); BILIRUBIN,TOTAL 0.6 mg/dL (0.2-1.0); CREATININE 0.8 mg/dL (0.5-1.5); TOTAL PROTEIN, SERUM 6.5 g/dL (6.0-8.3)
[2021-04-20 05:47] LABS: POTASSIUM 2.7 mmol/L (3.5-5.1)
[2021-04-20] MEDS: ONDANSETRON 4MG INJ IVP PRN (05:54)
[2021-04-20] MEDS: LIDOCAINE HCL-MPF 1% 2ML VIAL IV PRN ×3 (06:36→23:09)
[2021-04-20] MEDS: POTASSIUM CHLORIDE 20MEQ/100ML 100 ML IV PRN ×3 (06:37→23:09)
[2021-04-20 07:33] LABS: ABG BASE EXCESS 4.7 mmol/L (-2.0-3.0); ABG HCO3 29.2 mmol/L (21.0-28.0); ABG OXYGEN SATURATION 93.7 % (95.0-99.0); ABG PCO2 43 mmHg (32-45)
[2021-04-20 07:50] VITALS: BP 158/80
[2021-04-20] MEDS: FAMOTIDINE 20MG VIAL IV SCH ×2 (09:08→20:04)
[2021-04-20] MEDS: ZOSYN 3.375GM+NS 50ML 50 ML IV SCH ×2 (09:09→20:03)
[2021-04-20] MEDS: METOPROLOL TARTRATE 25 MG TAB PO SCH ×2 (09:09→20:04)
[2021-04-20] MEDS: AMLODIPINE 2.5 MG TAB PO SCH (09:09)
[2021-04-20] MEDS: SPIRONOLACTONE 25 MG TAB PO SCH (09:10)
[2021-04-20] MEDS: LOSARTAN/HYDROCHLOROTHIAZIDE 50-12.5MG TABLET PO SCH (09:10)
[2021-04-20] MEDS: ENOXAPARIN SODIUM 40 MG/0.4 ML SYRINGE SQ SCH (09:13)
[2021-04-20] MEDS: METOCLOPRAMIDE 10 MG/2 ML VIAL IVP PRN (10:49)
[2021-04-20] MEDS: HYDROCODONE/ACETAMINOPHEN 5/325 MG TAB PO PRN (10:49)
[2021-04-20] MEDS: FLUCONAZOLE 200 MG/NS 100 ML 100 ML IV SCH (10:49)
[2021-04-20 11:13] VITALS: BP 146/74
[2021-04-20] MEDS: POTASSIUM CHLORIDE 10% ELIXIR 20 MEQ/15 ML UDCUP PO PRN ×3 (14:45→20:03)
[2021-04-20] MEDS: DEXTROSE 5%-LACTATED RINGERS 1,000 ML IV SCH (14:46)
[2021-04-20 16:31] VITALS: BP 162/89
[2021-04-20 20:08] VITALS: BP 152/58
[2021-04-20] MEDS ORDERED: SPIRONOLACTONE 25 MG TAB PO ONE (23:30)
[2021-04-21 00:18] VITALS: BP 160/97
[2021-04-21] MEDS: ONDANSETRON 4MG INJ IVP PRN ×2 (01:25→20:00)
[2021-04-21] MEDS: METOCLOPRAMIDE 10 MG/2 ML VIAL IVP PRN ×2 (01:55→11:54)
[2021-04-21] MEDS: APAP/CODEINE 120/12MG 5ML PO PRN ×3 (03:27→11:55)
[2021-04-21 04:05] VITALS: BP 141/67
[2021-04-21 05:11] LABS: HEMATOCRIT 27.1 % (36-48); MEAN CORPUSCULAR HEMOGLOBIN 27.5 pg (27.0-33.0); MEAN CORPUSCULAR VOLUME 88.6 fL (79-99); PLATELET COUNT (AUTO) 287 K/uL (130-400); RED BLOOD CELL COUNT(AUTO) 3.06 MIL/uL (4.00-5.50); RED CELL DISTRIBUTION WIDTH 15.9 % (11.0-15.5); WHITE BLOOD COUNT (AUTO) 23.5 K/uL (4.8-10.8)
[2021-04-21 05:34] LABS: ALBUMIN 1.8 g/dL (3.5-5.0); BILIRUBIN,TOTAL 0.5 mg/dL (0.2-1.0); CREATININE 0.8 mg/dL (0.5-1.5); POTASSIUM 3.2 mmol/L (3.5-5.1); TOTAL PROTEIN, SERUM 6.2 g/dL (6.0-8.3)
[2021-04-21 05:41] LABS: PLATELET MORPHOLOGY PLT CLUMPS PRESENT
[2021-04-21] MEDS: POTASSIUM CHLORIDE 10% ELIXIR 20 MEQ/15 ML UDCUP PO PRN (05:50)
[2021-04-21 07:30] VITALS: BP 166/91
[2021-04-21] MEDS ORDERED: IOHEXOL 350 MG/ML 100ML INFUS..BTL IV ONE (10:57)
[2021-04-21 11:00] VITALS: BP 141/80
[2021-04-21] MEDS ORDERED: DIATR MEGLU/DIATRIZOATE SODIUM 30 ML BOTTLE ONE (11:01)
[2021-04-21] MEDS: AMLODIPINE 2.5 MG TAB PO SCH (11:54)
[2021-04-21] MEDS: FLUCONAZOLE 200 MG/NS 100 ML 100 ML IV SCH (11:54)
[2021-04-21] MEDS: ENOXAPARIN SODIUM 40 MG/0.4 ML SYRINGE SQ SCH (11:54)
[2021-04-21] MEDS: LOSARTAN/HYDROCHLOROTHIAZIDE 50-12.5MG TABLET PO SCH (11:54)
[2021-04-21] MEDS: FAMOTIDINE 20MG VIAL IV SCH ×2 (11:54→20:00)
[2021-04-21] MEDS: SPIRONOLACTONE 25 MG TAB PO SCH ×2 (11:57→20:00)
[2021-04-21] MEDS: METOPROLOL TARTRATE 25 MG TAB PO SCH ×2 (11:57→20:00)
[2021-04-21] MEDS ORDERED: HYDROMORPHONE 0.5 MG SYG (0.5MG/0.5ML) IVP PRN (14:30)
[2021-04-21] MEDS: HYDROMORPHONE 0.5 MG SYG (0.5MG/0.5ML) IVP PRN ×2 (14:34→21:10)
[2021-04-21] MEDS: MEROPENEM 1 GM VIAL IVP SCH ×2 (15:03→22:38)
[2021-04-21 16:00] VITALS: BP 162/86
[2021-04-21 16:30] LABS: INR 1.06 (0.85-1.15); PROTHROMBIN TIME 11.5 SEC (9.6-11.6)
[2021-04-21 16:32] LABS: PARTIAL THROMBOPLASTIN TIME 27.7 SEC (26.3-35.5)
[2021-04-21] MEDS: DEXTROSE 5%-LACTATED RINGERS 1,000 ML IV SCH (18:31)
[2021-04-21] MEDS: CALCIUM GLUC 1GM 2 GM in 0.9%NACL 100ML 100 ML IV SCH (18:44)
[2021-04-21] MEDS: IPRATROPIUM/ALBUTEROL SULFATE 3 ML SOLUTION IH PRN (19:41)
[2021-04-21 19:50] VITALS: BP 160/68
[2021-04-21 21:19] LABS: APPEARANCE,URINE CLEAR (CLEAR); BILIRUBIN,URINE NEGATIVE (NEGATIVE); COLOR,URINE YELLOW (YELLOW); GLUCOSE, URINE (UA) NEGATIVE (NEGATIVE); KETONES,URINE NEGATIVE (NEGATIVE); LEUKOCYTE ESTERASE ,URINE NEGATIVE (NEGATIVE); NITRATE,URINE NEGATIVE (NEGATIVE); OCCULT BLOOD,URINE SMALL (NEGATIVE); PROTEIN,URINE TRACE mg/dL (NEGATIVE); UROBILINOGEN,URINE 0.2 mg/dL (0.2-1.0)
[2021-04-21 21:34] LABS: BACTERIA,URINE Rare /HPF (None Seen); SQUAMOUS EPITHELIAL CELL,UR Few /HPF (0-2); WBC,URINE 0-1 /HPF (0-1)
[2021-04-22] VITALS (8 sets, daily range): BP systolic 129–189; BP diastolic 66–103
[2021-04-22] MEDS: IPRATROPIUM/ALBUTEROL SULFATE 3 ML SOLUTION IH PRN (00:40)
[2021-04-22] MEDS: HYDROMORPHONE 0.5 MG SYG (0.5MG/0.5ML) IVP PRN ×3 (01:34→21:17)
[2021-04-22] MEDS: DEXTROSE 5%-LACTATED RINGERS 1,000 ML IV SCH (03:20)
[2021-04-22] MEDS: METOPROLOL TARTRATE 25 MG TAB PO SCH ×2 (04:51→20:51)
[2021-04-22] MEDS: ONDANSETRON 4MG INJ IVP PRN (04:57)
[2021-04-22 05:49] LABS: HEMATOCRIT 27.8 % (36-48); MEAN CORPUSCULAR HEMOGLOBIN 27.1 pg (27.0-33.0); MEAN CORPUSCULAR HGB CONC 30.6 g/dL (32.0-36.0); MEAN CORPUSCULAR VOLUME 88.5 fL (79-99); NUCLEATED RED BLOOD CELLS 0.1 % (0.0-0.19); RED BLOOD CELL COUNT(AUTO) 3.14 MIL/uL (4.00-5.50); RED CELL DISTRIBUTION WIDTH 15.9 % (11.0-15.5)
[2021-04-22] MEDS: MEROPENEM 1 GM VIAL IVP SCH ×3 (06:10→23:24)
[2021-04-22 06:13] LABS: ALBUMIN 1.8 g/dL (3.5-5.0); BILIRUBIN,TOTAL 0.4 mg/dL (0.2-1.0); CREATININE 0.7 mg/dL (0.5-1.5); TOTAL PROTEIN, SERUM 6.4 g/dL (6.0-8.3)
[2021-04-22 06:17] LABS: POTASSIUM 2.9 mmol/L (3.5-5.1)
[2021-04-22] MEDS: LIDOCAINE HCL-MPF 1% 2ML VIAL IV PRN ×2 (06:19→11:30)
[2021-04-22] MEDS: POTASSIUM CHLORIDE 20MEQ/100ML 100 ML IV PRN ×2 (06:19→11:30)
[2021-04-22] MEDS: FLUCONAZOLE 400 MG/NS 200 ML 200 ML IV SCH (08:43)
[2021-04-22] MEDS: MAGNESIUM 2GM PREMIX 50ML 50 ML IV PRN (08:43)
[2021-04-22] MEDS: SPIRONOLACTONE 25 MG TAB PO SCH ×2 (08:43→20:51)
[2021-04-22] MEDS: LOSARTAN/HYDROCHLOROTHIAZIDE 50-12.5MG TABLET PO SCH (08:44)
[2021-04-22] MEDS: AMLODIPINE 2.5 MG TAB PO SCH (08:45)
[2021-04-22] MEDS: FAMOTIDINE 20MG VIAL IV SCH ×2 (08:45→20:51)
[2021-04-22] MEDS: ENOXAPARIN SODIUM 40 MG/0.4 ML SYRINGE SQ SCH (08:46)
[2021-04-22] MEDS: METOCLOPRAMIDE 10 MG/2 ML VIAL IVP PRN (09:01)
[2021-04-22] MEDS: CALCIUM GLUC 1GM 2 GM in 0.9%NACL 100ML 100 ML IV SCH (09:25)
[2021-04-22] MEDS: MORPHINE 2 MG SYG IVP PRN ×2 (12:20→18:01)
[2021-04-22] MEDS: NS-20 MEQ KCL 1000ML 1,000 ML IV SCH ×2 (13:45→18:30)
[2021-04-22] MEDS: SCOPOLAMINE HYDROBROMIDE 1 EACH ADH..PATCH TD SCH (18:02)
[2021-04-22 19:23] LABS: MAGNESIUM 1.7 mg/dL (1.80-2.40); POTASSIUM 3.2 mmol/L (3.5-5.1)
[2021-04-22] MEDS ORDERED: PHARMACY COMMUNICATION MISC SCH (22:00)
[2021-04-23 00:01] VITALS: BP 159/74
[2021-04-23] MEDS: MORPHINE 2 MG SYG IVP PRN ×2 (01:32→19:20)
[2021-04-23 04:24] VITALS: BP 146/79
[2021-04-23] MEDS: DEXTROSE 5%-LACTATED RINGERS 1,000 ML IV SCH ×2 (05:10→20:00)
[2021-04-23 05:37] LABS: BASOPHILS % (AUTO) 0.3 % (0.0-5.0); EOSINOPHILS % (AUTO) 1.2 % (0.0-8.0); HEMATOCRIT 27.2 % (36-48); LYMPHOCYTES % (AUTO) 10.3 % (21.0-51.0); MEAN CORPUSCULAR HEMOGLOBIN 26.3 pg (27.0-33.0); MEAN CORPUSCULAR HGB CONC 30.5 g/dL (32.0-36.0); MEAN CORPUSCULAR VOLUME 86.3 fL (79-99); MONOCYTES % (AUTO) 7.3 % (3.0-13.0); NEUTROPHILS % (AUTO) 74.6 % (40.0-77.0); PLATELET COUNT (AUTO) 237 K/uL (130-400); RED BLOOD CELL COUNT(AUTO) 3.15 MIL/uL (4.00-5.50); RED CELL DISTRIBUTION WIDTH 15.8 % (11.0-15.5); WHITE BLOOD COUNT (AUTO) 17.3 K/uL (4.8-10.8)
[2021-04-23] MEDS: MEROPENEM 1 GM VIAL IVP SCH ×3 (06:07→23:07)
[2021-04-23 06:10] LABS: ALBUMIN 1.9 g/dL (3.5-5.0); BILIRUBIN,TOTAL 0.5 mg/dL (0.2-1.0); CREATININE 0.8 mg/dL (0.5-1.5); MAGNESIUM 1.5 mg/dL (1.80-2.40); PHOSPHORUS 3.5 mg/dL (2.5-4.9); TOTAL PROTEIN, SERUM 6.5 g/dL (6.0-8.3)
[2021-04-23 06:13] LABS: POTASSIUM 2.9 mmol/L (3.5-5.1)
[2021-04-23] MEDS: POTASSIUM CHLORIDE 20MEQ/100ML 100 ML IV PRN ×4 (06:16→20:05)
[2021-04-23] MEDS: LIDOCAINE HCL-MPF 1% 2ML VIAL IV PRN ×3 (06:16→17:00)
[2021-04-23] MEDS: HYDROMORPHONE 0.5 MG SYG (0.5MG/0.5ML) IVP PRN ×2 (07:12→23:07)
[2021-04-23 08:00] VITALS: BP 150/81
[2021-04-23] MEDS: METOPROLOL TARTRATE 25 MG TAB PO SCH ×2 (08:27→20:03)
[2021-04-23] MEDS: FLUCONAZOLE 400 MG/NS 200 ML 200 ML IV SCH (08:27)
[2021-04-23] MEDS: LOSARTAN/HYDROCHLOROTHIAZIDE 50-12.5MG TABLET PO SCH (08:28)
[2021-04-23] MEDS: SPIRONOLACTONE 25 MG TAB PO SCH ×2 (08:28→20:04)
[2021-04-23] MEDS: AMLODIPINE 2.5 MG TAB PO SCH (08:28)
[2021-04-23] MEDS: FAMOTIDINE 20MG VIAL IV SCH ×2 (08:28→20:03)
[2021-04-23] MEDS: ENOXAPARIN SODIUM 40 MG/0.4 ML SYRINGE SQ SCH (08:29)
[2021-04-23] MEDS ORDERED: THIAMINE HCL 100 MG/ML 2ML VIAL IVP SCH (09:00)
[2021-04-23] MEDS: THIAMINE HCL 300 MG in 0.9%NACL 100ML 100 ML IV SCH (09:00)
[2021-04-23] MEDS ORDERED: IPRATROPIUM/ALBUTEROL SULFATE 3 ML SOLUTION IH PRN (11:30)
[2021-04-23] MEDS: IPRATROPIUM/ALBUTEROL SULFATE 3 ML SOLUTION IH PRN (11:44)
[2021-04-23] MEDS ORDERED: M.V.I. IV [ADULT] 10 ML in CLINIMIX-E 5%AA /D15%W 2000ML 2,000 ML IV NR (11:52)
[2021-04-23 12:00] VITALS: BP 158/91
[2021-04-23] MEDS ORDERED: COMPOUND IV MISC 1 EACH IVSOLN MISC PRN (12:00)
[2021-04-23] MEDS: ONDANSETRON 4MG INJ IVP PRN ×3 (12:04→23:07)
[2021-04-23] MEDS: MAGNESIUM 2GM PREMIX 50ML 50 ML IV PRN (12:05)
[2021-04-23] MEDS: M.V.I. IV [ADULT] 10 ML in CLINIMIX-E4.25%AA/D5+LYT2000ML 2,000 ML IV NR (14:26)
[2021-04-23 16:00] VITALS: BP 149/87
[2021-04-23 20:00] VITALS: BP 154/77
[2021-04-24] VITALS (7 sets, daily range): BP systolic 132–151; BP diastolic 70–88
[2021-04-24] MEDS: POTASSIUM CHLORIDE 20MEQ/100ML 100 ML IV PRN (04:28)
[2021-04-24] MEDS: MORPHINE 2 MG SYG IVP PRN (04:29)
[2021-04-24 04:55] LABS: CREATININE 0.8 mg/dL (0.5-1.5); MAGNESIUM 1.8 mg/dL (1.80-2.40); POTASSIUM 3.8 mmol/L (3.5-5.1)
[2021-04-24] MEDS: MEROPENEM 1 GM VIAL IVP SCH ×3 (06:40→23:18)
[2021-04-24] MEDS: METOPROLOL TARTRATE 25 MG TAB PO SCH ×2 (08:00→21:18)
[2021-04-24] MEDS: SPIRONOLACTONE 25 MG TAB PO SCH ×2 (08:00→21:18)
[2021-04-24] MEDS: AMLODIPINE 2.5 MG TAB PO SCH (08:00)
[2021-04-24] MEDS: FAMOTIDINE 20MG VIAL IV SCH ×2 (08:00→21:17)
[2021-04-24] MEDS: FLUCONAZOLE 400 MG/NS 200 ML 200 ML IV SCH (08:01)
[2021-04-24] MEDS: HYDROMORPHONE 0.5 MG SYG (0.5MG/0.5ML) IVP PRN ×3 (08:01→23:31)
[2021-04-24] MEDS: ENOXAPARIN SODIUM 40 MG/0.4 ML SYRINGE SQ SCH (08:02)
[2021-04-24] MEDS: ONDANSETRON 4MG INJ IVP PRN ×2 (08:14→18:45)
[2021-04-24] MEDS: THIAMINE HCL 300 MG in 0.9%NACL 100ML 100 ML IV SCH (09:00)
[2021-04-24] MEDS: KETOROLAC 30MG VIAL (30MG/ML) IV PRN (15:03)
[2021-04-24] MEDS: LOSARTAN 50 MG TABLET PO SCH (15:03)
[2021-04-24] MEDS: M.V.I. IV [ADULT] 10 ML in CLINIMIX-E4.25%AA/D5+LYT2000ML 2,000 ML IV NR (15:05)
[2021-04-24] MEDS: DEXTROSE 5%-LACTATED RINGERS 1,000 ML IV SCH (16:00)
[2021-04-25] MEDS: HYDROMORPHONE 0.5 MG SYG (0.5MG/0.5ML) IVP PRN ×5 (03:39→23:27)
[2021-04-25] MEDS: ONDANSETRON 4MG INJ IVP PRN ×2 (03:47→17:51)
[2021-04-25 04:00] VITALS: BP_SYST 126; BP_SYST 155; BP_DIAS 84; BP_DIAS 97
[2021-04-25 05:07] LABS: CREATININE 0.7 mg/dL (0.5-1.5); POTASSIUM 4.7 mmol/L (3.5-5.1)
[2021-04-25] MEDS: MEROPENEM 1 GM VIAL IVP SCH ×3 (06:23→23:27)
[2021-04-25] MEDS: IPRATROPIUM/ALBUTEROL SULFATE 3 ML SOLUTION IH PRN (06:31)
[2021-04-25 07:20] VITALS: BP 156/64
[2021-04-25] MEDS: METOPROLOL TARTRATE 25 MG TAB PO SCH ×2 (08:36→21:07)
[2021-04-25] MEDS: AMLODIPINE 2.5 MG TAB PO SCH (08:36)
[2021-04-25] MEDS: SPIRONOLACTONE 25 MG TAB PO SCH ×2 (08:36→21:07)
[2021-04-25] MEDS: FLUCONAZOLE 400 MG/NS 200 ML 200 ML IV SCH (08:36)
[2021-04-25] MEDS: FAMOTIDINE 20MG VIAL IV SCH ×2 (08:37→21:07)
[2021-04-25] MEDS: ENOXAPARIN SODIUM 40 MG/0.4 ML SYRINGE SQ SCH (08:37)
[2021-04-25] MEDS: LOSARTAN 50 MG TABLET PO SCH ×2 (08:37→11:51)
[2021-04-25] MEDS: THIAMINE HCL 300 MG in 0.9%NACL 100ML 100 ML IV SCH (08:39)
[2021-04-25 09:24] LABS: HEMATOCRIT 27.2 % (36-48); MEAN CORPUSCULAR HEMOGLOBIN 26.3 pg (27.0-33.0); MEAN CORPUSCULAR HGB CONC 30.5 g/dL (32.0-36.0); MEAN CORPUSCULAR VOLUME 86.3 fL (79-99); RED BLOOD CELL COUNT(AUTO) 3.15 MIL/uL (4.00-5.50); RED CELL DISTRIBUTION WIDTH 15.2 % (11.0-15.5)
[2021-04-25 09:31] LABS: CREATININE 0.8 mg/dL (0.5-1.5); POTASSIUM 4.3 mmol/L (3.5-5.1)
[2021-04-25 11:20] VITALS: BP 130/69
[2021-04-25] MEDS: DEXTROSE 5%-LACTATED RINGERS 1,000 ML IV SCH (12:00)
[2021-04-25 15:15] VITALS: BP 133/70
[2021-04-25] MEDS ORDERED: M.V.I. IV [ADULT] 10 ML, MULTITRACE-4 ADULT 10ML VIAL 3 ML in CLINIMIX-E4.25%AA/D5+LYT2... IV ONE (16:00)
[2021-04-25] MEDS: SCOPOLAMINE HYDROBROMIDE 1 EACH ADH..PATCH TD SCH (16:54)
[2021-04-25 20:22] VITALS: BP 152/74
[2021-04-26] VITALS: BP 139/86
[2021-04-26] MEDS: ONDANSETRON 4MG INJ IVP PRN ×2 (00:48→21:52)
[2021-04-26] MEDS: MORPHINE 2 MG SYG IVP PRN ×2 (03:28→21:52)
[2021-04-26 04:00] VITALS: BP 137/79
[2021-04-26 05:12] LABS: HEMATOCRIT 26.6 % (36-48); MEAN CORPUSCULAR HEMOGLOBIN 26.3 pg (27.0-33.0); MEAN CORPUSCULAR HGB CONC 30.5 g/dL (32.0-36.0); MEAN CORPUSCULAR VOLUME 86.4 fL (79-99); RED BLOOD CELL COUNT(AUTO) 3.08 MIL/uL (4.00-5.50); RED CELL DISTRIBUTION WIDTH 15.2 % (11.0-15.5); WHITE BLOOD COUNT (AUTO) 13.5 K/uL (4.8-10.8)
[2021-04-26 05:42] LABS: CREATININE 0.8 mg/dL (0.5-1.5); MAGNESIUM 1.9 mg/dL (1.80-2.40); PHOSPHORUS 3.3 mg/dL (2.5-4.9); POTASSIUM 4.5 mmol/L (3.5-5.1)
[2021-04-26] MEDS: HYDROMORPHONE 0.5 MG SYG (0.5MG/0.5ML) IVP PRN ×2 (06:19→12:05)
[2021-04-26] MEDS: MEROPENEM 1 GM VIAL IVP SCH ×3 (06:28→23:00)
[2021-04-26] MEDS ORDERED: DIATR MEGLU/DIATRIZOATE SODIUM 30 ML BOTTLE ONE (06:32)
[2021-04-26 07:15] VITALS: BP 154/70
[2021-04-26] MEDS: DEXTROSE 5%-LACTATED RINGERS 1,000 ML IV SCH (08:00)
[2021-04-26] MEDS: FLUCONAZOLE 400 MG/NS 200 ML 200 ML IV SCH (08:19)
[2021-04-26] MEDS: THIAMINE HCL 300 MG in 0.9%NACL 100ML 100 ML IV SCH (08:19)
[2021-04-26] MEDS: ENOXAPARIN SODIUM 40 MG/0.4 ML SYRINGE SQ SCH (08:20)
[2021-04-26] MEDS: FAMOTIDINE 20MG VIAL IV SCH ×2 (08:20→21:59)
[2021-04-26] MEDS: METOPROLOL TARTRATE 25 MG TAB PO SCH ×2 (11:06→22:00)
[2021-04-26] MEDS: AMLODIPINE 2.5 MG TAB PO SCH (11:06)
[2021-04-26] MEDS: LOSARTAN 50 MG TABLET PO SCH (11:06)
[2021-04-26] MEDS: SPIRONOLACTONE 25 MG TAB PO SCH ×2 (11:07→22:00)
[2021-04-26 11:20] VITALS: BP 161/78
[2021-04-26 15:20] VITALS: BP 144/70
[2021-04-26] MEDS: KETOROLAC 30MG VIAL (30MG/ML) IV PRN (16:45)
[2021-04-26] MEDS ORDERED: M.V.I. IV [ADULT] 10 ML in CLINIMIX-E4.25%AA/D5+LYT2000ML 2,000 ML IV ONE (17:00)
[2021-04-26 20:18] VITALS: BP 144/80
[2021-04-27 00:07] VITALS: BP 102/66
[2021-04-27] MEDS: KETOROLAC 30MG VIAL (30MG/ML) IV PRN ×3 (01:22→23:39)
[2021-04-27 03:43] VITALS: BP 135/42
[2021-04-27] MEDS: DEXTROSE 5%-LACTATED RINGERS 1,000 ML IV SCH (04:00)
[2021-04-27] MEDS: MORPHINE 2 MG SYG IVP PRN ×2 (04:30→10:01)
[2021-04-27] MEDS: ONDANSETRON 4MG INJ IVP PRN ×3 (05:06→16:54)
[2021-04-27 05:57] LABS: BASOPHILS % (AUTO) 0.7 % (0.0-5.0); EOSINOPHILS % (AUTO) 2.4 % (0.0-8.0); HEMATOCRIT 25.6 % (36-48); LYMPHOCYTES % (AUTO) 15.4 % (21.0-51.0); MEAN CORPUSCULAR HEMOGLOBIN 26.8 pg (27.0-33.0); MEAN CORPUSCULAR HGB CONC 30.5 g/dL (32.0-36.0); MONOCYTES % (AUTO) 9.8 % (3.0-13.0); PLATELET COUNT (AUTO) 227 K/uL (130-400); RED BLOOD CELL COUNT(AUTO) 2.91 MIL/uL (4.00-5.50); RED CELL DISTRIBUTION WIDTH 15.4 % (11.0-15.5); WHITE BLOOD COUNT (AUTO) 10.3 K/uL (4.8-10.8)
[2021-04-27 06:26] LABS: ALBUMIN 1.9 g/dL (3.5-5.0); BILIRUBIN,TOTAL 0.4 mg/dL (0.2-1.0); CREATININE 0.7 mg/dL (0.5-1.5); POTASSIUM 4.4 mmol/L (3.5-5.1); TOTAL PROTEIN, SERUM 6.6 g/dL (6.0-8.3)
[2021-04-27] MEDS: MEROPENEM 1 GM VIAL IVP SCH ×3 (06:52→23:38)
[2021-04-27 08:00] VITALS: BP 127/67
[2021-04-27] MEDS: AMLODIPINE 2.5 MG TAB PO SCH (10:01)
[2021-04-27] MEDS: FAMOTIDINE 20MG VIAL IV SCH ×2 (10:01→20:20)
[2021-04-27] MEDS: LOSARTAN 50 MG TABLET PO SCH (10:02)
[2021-04-27] MEDS: SPIRONOLACTONE 25 MG TAB PO SCH ×2 (10:02→20:20)
[2021-04-27] MEDS: METOPROLOL TARTRATE 25 MG TAB PO SCH ×2 (10:02→20:20)
[2021-04-27] MEDS: ENOXAPARIN SODIUM 40 MG/0.4 ML SYRINGE SQ SCH (10:03)
[2021-04-27] MEDS: FAT EMULSIONS 20% 250ML 250 ML IV SCH (10:03)
[2021-04-27] MEDS: FLUCONAZOLE 400 MG/NS 200 ML 200 ML IV SCH (10:04)
[2021-04-27 16:00] VITALS: BP 135/79
[2021-04-27 20:00] VITALS: BP 154/51
[2021-04-27] MEDS: METOCLOPRAMIDE 10 MG/2 ML VIAL IVP PRN (20:20)
[2021-04-27] MEDS: THIAMINE HCL 300 MG in 0.9%NACL 100ML 100 ML IV SCH (23:08)
[2021-04-28] VITALS: BP 143/64
[2021-04-28 04:00] VITALS: BP 153/67
[2021-04-28] MEDS: MEROPENEM 1 GM VIAL IVP SCH ×3 (06:15→22:18)
[2021-04-28] MEDS: KETOROLAC 30MG VIAL (30MG/ML) IV PRN ×3 (06:16→22:19)
[2021-04-28] MEDS: ONDANSETRON 4MG INJ IVP PRN ×3 (06:16→22:18)
[2021-04-28 08:00] VITALS: BP 139/66
[2021-04-28] MEDS: THIAMINE HCL 300 MG in 0.9%NACL 100ML 100 ML IV SCH (09:00)
[2021-04-28] MEDS: SPIRONOLACTONE 25 MG TAB PO SCH ×2 (10:09→20:19)
[2021-04-28] MEDS: LOSARTAN 50 MG TABLET PO SCH (10:09)
[2021-04-28] MEDS: AMLODIPINE 2.5 MG TAB PO SCH (10:09)
[2021-04-28] MEDS: FAMOTIDINE 20MG VIAL IV SCH ×2 (10:09→19:59)
[2021-04-28] MEDS: METOPROLOL TARTRATE 25 MG TAB PO SCH ×2 (10:09→20:20)
[2021-04-28] MEDS: ENOXAPARIN SODIUM 40 MG/0.4 ML SYRINGE SQ SCH (10:11)
[2021-04-28] MEDS: FLUCONAZOLE 400 MG/NS 200 ML 200 ML IV SCH (10:12)
[2021-04-28 12:00] VITALS: BP 139/63
[2021-04-28] MEDS ORDERED: M.V.I. IV [ADULT] 10 ML in CLINIMIX 5%AA/D15W 2000ML 2,000 ML IV ONE (15:00)
[2021-04-28] MEDS ORDERED: [UNRECOGNIZED DRUG - REMARK] MISC SCH (15:30)
[2021-04-28 16:00] VITALS: BP 118/62
[2021-04-28] MEDS ORDERED: [UNRECOGNIZED DRUG - OTHER] IV ONE ×6 (16:30)
[2021-04-28] MEDS ORDERED: M V I IV ONE ×6 (16:30)
[2021-04-28] MEDS ORDERED: POTASSIUM PHOSPHATE IV ONE ×6 (16:30)
[2021-04-28] MEDS ORDERED: SODIUM CHLORIDE IV ONE ×6 (16:30)
[2021-04-28] MEDS: FLUOXETINE HCL 10 MG CAPSULE PO SCH (19:59)
[2021-04-28 20:00] VITALS: BP 149/58
[2021-04-28] MEDS: DEXTROSE 5%-LACTATED RINGERS 1,000 ML IV SCH ×2 (20:00)
[2021-04-29] VITALS: BP 125/62
[2021-04-29 04:00] VITALS: BP 158/80
[2021-04-29] MEDS: KETOROLAC 30MG VIAL (30MG/ML) IV PRN ×2 (04:25→11:23)
[2021-04-29] MEDS: MEROPENEM 1 GM VIAL IVP SCH (06:09)
[2021-04-29 07:45] VITALS: BP 138/64
[2021-04-29] MEDS: ONDANSETRON 4MG INJ IVP PRN (08:34)
[2021-04-29] MEDS: ENOXAPARIN SODIUM 40 MG/0.4 ML SYRINGE SQ SCH ×2 (09:00→09:27)
[2021-04-29] MEDS: THIAMINE HCL 300 MG in 0.9%NACL 100ML 100 ML IV SCH ×3 (09:00→09:35)
[2021-04-29] MEDS: FAMOTIDINE 20MG VIAL IV SCH ×2 (09:00→09:29)
[2021-04-29] MEDS: FLUCONAZOLE 400 MG/NS 200 ML 200 ML IV SCH ×2 (09:00→09:26)
[2021-04-29] MEDS: METOPROLOL TARTRATE 25 MG TAB PO SCH (09:27)
[2021-04-29] MEDS: FLUOXETINE HCL 10 MG CAPSULE PO SCH (09:27)
[2021-04-29] MEDS: AMLODIPINE 2.5 MG TAB PO SCH (09:27)
[2021-04-29] MEDS: SPIRONOLACTONE 25 MG TAB PO SCH (09:27)
[2021-04-29] MEDS: LOSARTAN 50 MG TABLET PO SCH (09:31)
[2021-04-29] MEDS: FAT EMULSIONS 20% 250ML 250 ML IV SCH ×2 (09:34→10:00)
[2021-04-29] MEDS ORDERED: [UNRECOGNIZED DRUG - OTHER] IV ONE ×6 (10:00)
[2021-04-29] MEDS ORDERED: SODIUM CL IV ONE ×6 (10:00)
[2021-04-29] MEDS ORDERED: POTASSIUM PHOSPHATE IV ONE ×6 (10:00)
[2021-04-29] MEDS ORDERED: M V I IV ONE ×6 (10:00)
[2021-04-30] MEDS ORDERED: AMLODIPINE 2.5 MG TAB PO SCH (09:00)
[2021-04-30] MEDS ORDERED: PANTOPRAZOLE 40 MG TAB DR PO SCH (09:00)
[2021-05-06] MEDS ORDERED: IRBE1TAB41 PO (15:21)
== END 2021-04-29 12:45 | disposition home or self-care (01) | DRG 619 ==
LOC: DAHIP 06:32 → 3AH 13:15 → 3DH 04-20 10:37
PROVIDERS: ADMIT Surgery; ATTEND Surgery
PROC: 0D164ZA Bypass Stomach to Jejunum, Percutaneous Endoscopic Approach (ICD-10-PCS; principal; 2021-04-11 09:09)
PROC: 0DN64ZZ Release Stomach, Percutaneous Endoscopic Approach (ICD-10-PCS; 2021-04-11 09:09)
PROC: 0DP64CZ Removal of Extraluminal Device from Stomach, Percutaneous Endoscopic Approach (ICD-10-PCS; 2021-04-11 09:09)
PROC: 5A09357 Assistance with Respiratory Ventilation, Less than 24 Consecutive Hours, Continuous Positive Airway Pressure (ICD-10-PCS; 2021-04-20)
PROC: 02HV33Z Insertion of Infusion Device into Superior Vena Cava, Percutaneous Approach (ICD-10-PCS; 2021-04-21)
PROC: 5A09357 Assistance with Respiratory Ventilation, Less than 24 Consecutive Hours, Continuous Positive Airway Pressure (ICD-10-PCS; 2021-04-22)
PROC: 5A09357 Assistance with Respiratory Ventilation, Less than 24 Consecutive Hours, Continuous Positive Airway Pressure (ICD-10-PCS; 2021-04-23)
PROC: 5A09357 Assistance with Respiratory Ventilation, Less than 24 Consecutive Hours, Continuous Positive Airway Pressure (ICD-10-PCS; 2021-04-24)
PROC: 5A09357 Assistance with Respiratory Ventilation, Less than 24 Consecutive Hours, Continuous Positive Airway Pressure (ICD-10-PCS; 2021-04-27)
PROC: 5A09357 Assistance with Respiratory Ventilation, Less than 24 Consecutive Hours, Continuous Positive Airway Pressure (ICD-10-PCS; 2021-04-28)
PROC: 5A09357 Assistance with Respiratory Ventilation, Less than 24 Consecutive Hours, Continuous Positive Airway Pressure (ICD-10-PCS; 2021-04-29)
DX: E66.01 Morbid (severe) obesity due to excess calories (principal); J96.01 Acute respiratory failure with hypoxia; A41.9 Sepsis, unspecified organism; K85.90 Acute pancreatitis without necrosis or infection, unspecified; N17.9 Acute kidney failure, unspecified; J98.11 Atelectasis; L02.818 Cutaneous abscess of other sites; L03.311 Cellulitis of abdominal wall; I50.30 Unspecified diastolic (congestive) heart failure; D62 Acute posthemorrhagic anemia; J90 Pleural effusion, not elsewhere classified; K66.0 Peritoneal adhesions (postprocedural) (postinfection); F32.A Depression, unspecified; I11.0 Hypertensive heart disease with heart failure; E87.6 Hypokalemia; Z20.822 Contact with and (suspected) exposure to COVID-19; R53.81 Other malaise; Z68.42 Body mass index [BMI] 45.0-49.9, adult; Z79.899 Other long term (current) drug therapy; Z90.710 Acquired absence of both cervix and uterus; Z83.3 Family history of diabetes mellitus; Z80.0 Family history of malignant neoplasm of digestive organs; Z80.49 Family history of malignant neoplasm of other genital organs; Z82.5 Family history of asthma and other chronic lower respiratory diseases; Z82.49 Family history of ischemic heart disease and other diseases of the circulatory system
CPT/HCPCS: 36415; 36600; 43235; 71045; 71250; 74176; 74177; 76770; 80048; 80053; 80069; 81001; 82150; 82330; 82803; 83690; 83735; 84100; 84132; 84145; 85025; 85027; 85610; 85730; 86850; 86900; 86901; 87040; 87088; 87635; 93306; 93970; 94640; 94660; 94664; C1894; G0378; J0610; J0690; J1170; J1450; J1650; J1885; J1940; J2001; J2175; J2185; J2250; J2270; J2405; J2543; J2704; J2710; J2765; J3010; J3411; J3475; J3480; J3490; J7030; J7040; J7120; J7131; Q9963; Q9967

== ENCOUNTER 2021-05-09 06:53 | Day surgery (SDC) | payer OTHER, SELFPAY ==
[2021-05-05 14:02] LABS: RED BLOOD CELL COUNT(AUTO) 3.69 MIL/uL (4.00-5.50); WHITE BLOOD COUNT (AUTO) 7.9 K/uL (4.8-10.8)
[2021-05-05 14:03] LABS: BASOPHILS % (AUTO) 0.5 % (0.0-5.0); EOSINOPHILS % (AUTO) 1.9 % (0.0-8.0); HEMATOCRIT 31.4 % (36-48); LYMPHOCYTES % (AUTO) 23.4 % (21.0-51.0); MEAN CORPUSCULAR HEMOGLOBIN 26.3 pg (27.0-33.0); MEAN CORPUSCULAR HGB CONC 30.9 g/dL (32.0-36.0); MEAN CORPUSCULAR VOLUME 85.1 fL (79-99); MONOCYTES % (AUTO) 9.2 % (3.0-13.0); NEUTROPHILS % (AUTO) 63.9 % (40.0-77.0); PLATELET COUNT (AUTO) 310 K/uL (130-400); RED CELL DISTRIBUTION WIDTH 14.7 % (11.0-15.5)
[2021-05-05 14:17] LABS: ALBUMIN 2.9 g/dL (3.5-5.0); BILIRUBIN,TOTAL 0.5 mg/dL (0.2-1.0); CREATININE 1.4 mg/dL (0.5-1.5); POTASSIUM 4.1 mmol/L (3.5-5.1); TOTAL PROTEIN, SERUM 8.4 g/dL (6.0-8.3)
[~2021-05-09] VITALS: Ht 154.9 cm; Wt 104.3 kg
[2021-05-09] VITALS (8 sets, daily range): BP systolic 114–128; BP diastolic 57–87
[~2021-05-09 06:53] MED LIST changes: +0.9%NACL 1000ML 1,000 ML IV ONE; +IRBE1TAB41 PO; -IRBE1TAB65 PO
[2021-05-09] MEDS ORDERED: METO10TA3 PO (08:10)
[2021-05-09] MEDS ORDERED: SCOP1PAT11 TD (08:10)
[2021-05-09] MEDS ORDERED: ONDANSETRON 4MG INJ ONE (09:05)
[2021-05-09] MEDS ORDERED: MIDAZOLAM HCL 1 MG/ML 2ML VIAL ONE (09:05)
[2021-05-09] MEDS ORDERED: PROPOFOL 10 MG/ML 20ML VIAL IV ONE (09:05)
[2021-05-09] MEDS ORDERED: GLYCOPYRROLATE 1 MG/5 ML SYRINGE ONE (09:05)
[2021-05-09] MEDS ORDERED: LIDOCAINE PF 100MG/5ML (2%) SYRINGE 5ML ONE (09:06)
[2021-05-09] MEDS ORDERED: PHENYLEPHRINE HCL 10 MG/ML 1ML VIAL IV ONE (09:17)
== END 2021-05-09 10:00 | disposition home or self-care (01) ==
LOC: DAH 06:53 → ENDO 06:53
PROVIDERS: ATTEND Surgery
DX: R11.2 Nausea with vomiting, unspecified (principal); Z20.822 Contact with and (suspected) exposure to COVID-19; K28.9 Gastrojejunal ulcer, unspecified as acute or chronic, without hemorrhage or perforation; R13.10 Dysphagia, unspecified; I10 Essential (primary) hypertension; E66.01 Morbid (severe) obesity due to excess calories; Z90.710 Acquired absence of both cervix and uterus; Z98.890 Other specified postprocedural states; Z90.49 Acquired absence of other specified parts of digestive tract; Z82.49 Family history of ischemic heart disease and other diseases of the circulatory system; Z83.3 Family history of diabetes mellitus; Z80.9 Family history of malignant neoplasm, unspecified; Z98.84 Bariatric surgery status; Z80.0 Family history of malignant neoplasm of digestive organs; Z68.41 Body mass index [BMI] 40.0-44.9, adult
CPT/HCPCS: 36415; 43239; 80053; 85025; 87635; 88305; 88342; A4215 ×2; A4221; A4222; A4223; A4606; A4620; A4657; A4663; C9803; J2001; J2250; J2370; J2405; J2704; J3490; J7030

== ENCOUNTER 2022-07-03 22:53 | Emergency (ER) | payer OTHER ==
[~2022-07-03 22:53] MED LIST changes: -0.9%NACL 1000ML 1,000 ML IV ONE; -AMLO-257 PO; +METO10TA3 PO; -PANT40TA55 PO; +SCOP1PAT11 TD
== END 2022-07-03 23:27 | disposition left against medical advice (07) ==
LOC: EDH 22:53
DX: R10.9 Unspecified abdominal pain (principal); Z53.21 Procedure and treatment not carried out due to patient leaving prior to being seen by health care provider

== ENCOUNTER 2024-08-29 12:43 | Emergency (ER) | payer SELFPAY ==
[~2024-08-29] VITALS: Ht 152.4 cm; Wt 79.4 kg
[~2024-08-29 12:43] MED LIST changes: +SUCR1TAB28 PO
--- NOTE | 2024-08-29 12:49 | ERN ---
ED Note History of Present Illness Stated Complaint: SYNCOPE Chief Complaint: Syncope Time Seen by MD: 12:45 Dictation: PATIENT IS A 58-YEAR-OLD FEMALE COMING IN VIA EMS WHO STATES SHE WAS OUT MOWING HER LAWN TODAY WHEN SHE WAS FEELING LIGHTHEADED AND WEAK. SHE SAID SHE THOUGHT SHE MIGHT FAINT AND SHE HAS BEEN SWEATING QUITE A LOT. SHE STATES SHE DOES NOT DRINK A LOT OF WATER BECAUSE SHE HAS A GASTRIC SLEEVE. SHE ALSO STATES SHE HAS HAD LEFT ANTERIOR CHEST PAIN THAT DOES NOT RADIATE FOR 3-4 DAYS AND WANT TO KNOW WE COULD CHECK THAT OUT WHILE SHE IS HERE. HE HAS NOT BEEN TO SEE HER PRIMARY CARE DOCTOR. Allergies: Coded Allergies: No Known Drug Allergies (Unverified Allergy, Unknown, 04/17/18) Home Meds Active Scripts Sucralfate (Carafate) 1 Gram Tablet, 1 GM PO ACHS for 10 Days, #40 TAB Prov:LORENE WOOTEN PRINTING PRESS OPERATOR APPRENTICE 12/30/23 Reported Medications Metoclopramide HCl (Metoclopramide HCl) 10 Mg Tablet, 10 MG PO Q6HPRN, TAB 05/09/21 Scopolamine (Transderm-Scop) 1 Each Patch.td.3, 1 EACH TD Q3D 05/09/21 Irbesartan/Hydrochlorothiazide (Irbesartan-Hctz 150-12.5 mg Tb) 1 Each Tablet, 1 EACH PO DAILY, TAB 05/06/21 Past Medical History Past Medical History: Hypertension Surgical History: Bariatric Surgery History: Not Applicable RN Note Reviewed/Agreed w/PFSH: Yes Review of System Dictation CONSTITUTIONAL: NEGATIVE EXCEPT FOR HPI NEAR-SYNCOPE HEAD/FACE: NEGATIVE EXCEPT FOR HPI EENT: NEGATIVE EXCEPT FOR HPI RESPIRATORY: NEGATIVE EXCEPT FOR HPI LEFT ANTERIOR CHEST PAIN GASTROINTESTINAL/ABDOMINAL: NEGATIVE EXCEPT FOR HPI GENITOURINARY: NEGATIVE EXCEPT FOR HPI MUSCULOSKELETAL: NEGATIVE EXCEPT FOR HPI INTEGUMENTARY: NEGATIVE EXCEPT FOR HPI NEUROLOGICAL/PSYCH: NEGATIVE EXCEPT FOR HPI HEMATOLOGIC/LYMPHATIC: NEGATIVE EXCEPT FOR HPI ALL SYSTEMS NEGATIVE, EXCEPT NOTED ABOVE. 13 POINT REVIEW OF SYSTEMS ASSESSED AND ALL NEGATIVE EXCEPT FOR ABOVE. Initial Vital Sign VS Vital Signs Date Time Temp Pulse Resp B/P (MAP) Pulse Ox O2 Delivery O2 Flow Rate FiO2 08/29/24 12:56 97.9 81 16 119/50 98 Room Air 0 08/29/24 13:16 21 Physical Exam Dictation VITAL SIGNS REVIEWED GENERAL APPEARANCE: ALERT, ORIENTED X 3, NO ACUTE DISTRESS, WELL DEVELOPED, NOURISHED. HEAD AND FACE: NON-TRAUMATIC. EYES: PERRL, PINK CONJUNCTIVAS, EYELID NO TRAUMA, ANTERIOR CHAMBER WITH ARCUS SENILIS. EARS: PINNAS INTACT AND NO SIGNS OF TRAUMA OR ERYTHEMA EAR CANALS CLEAR AND NO DISCHARGE TM NO ERYTHEMA NOSE: NO DISCHARGE, NO BLEEDING. OROPHARYNX: MOUTH NORMAL, TONGUE PINK, PHARYNX CLEAR,NO ERYTHEMA, TONSILS NO EXUDATES, NO ABSCESSES NOTED, MUCOUS MEMBRANE MOIST NECK: SUPPLE, NON-TENDER, NO THYROMEGALY, NO MASSES, NO JVD, NO BRUITS BREAST:DEFERRED CHEST:NO TENDERNESS, NO CREPITUS, NO PARADOXICAL MOVEMENT, NO RETRACTIONS LUNGS:CLEAR, WELL-VENTILATED, SYMMETRIC, NO RALES, NO WHEEZING, NO RHONCHI, NO STRIDOR, GOOD BREATH SOUNDS BILATERALLY HEART: REGULAR RATE, REGULAR RHYTHM, NO MURMUR, NO GALLOPS VASCULAR: NO PERIPHERAL EDEMA, ABDOMEN: SOFT, POSITIVE BOWEL SOUNDS, NONDISTENDED, NO GUARDING, NONTENDER, NO REBOUND, NO MASSES NO HEPATOMEGALY, NO SPLENOMEGALY, NO CASTILLO'S SIGN, NO HERNIAS. RECTAL: DEFERRED GENITAL: DEFERRED NEUROLOGICAL: NORMAL SPEECH, MOTOR FUNCTION INTACT, SENSORY FUNCTION INTACT MUSCULOSKELETAL: NECK NONTENDER, FULL RANGE OF MOTION, BACK NONTENDER, FULL RANGE OF MOTION, EXTREMITIES: NONTENDER, FULL RANGE OF MOTION SKIN: COLOR PINK, DRY, NO TURGOR, NO RASH, NO LACERATIONS, NO ABRASIONS, NO CONTUSIONS. LYMPHATIC: DEFERRED Results (Laboratory/Radiology) Laboratory/Radiology Laboratory Tests Test 08/29/24 12:55 White Blood Count 7.1 K/uL (4.8-10.8) Red Blood Count 4.07 MIL/uL (4.00-5.50) Hemoglobin 12.2 g/dL (12.0-16.0) Hematocrit 37.0 % (36-48) Mean Corpuscular Volume 90.9 fL (79-99) Mean Corpuscular Hemoglobin 30.0 pg (27.0-33.0) Mean Corpuscular Hemoglobin Concent 33.0 g/dL (32.0-36.0) Red Cell Distribution Width 13.2 % (11.0-15.5) Platelet Count 218 K/uL (130-400) Mean Platelet Volume 9.7 fL (7.5-10.5) Immature Granulocyte % (Auto) 0.6 % (0-1) Neutrophils (%) (Auto) 77.8 % (40.0-77.0) H Lymphocytes (%) (Auto) 15.6 % (21.0-51.0) L Monocytes (%) (Auto) 5.5 % (3.0-13.0) Eosinophils (%) (Auto) 0.1 % (0.0-8.0) Basophils (%) (Auto) 0.4 % (0.0-5.0) Neutrophils # (Auto) 5.5 K/uL (1.8-7.7) Lymphocytes # (Auto) 1.1 K/uL (1.0-4.8) Monocytes # (Auto) 0.4 K/uL (0.1-1.0) Eosinophils # (Auto) 0.01 K/uL (0.00-0.70) Basophils # (Auto) 0.03 K/uL (0.00-0.20) Absolute Immature Granulocyte (auto 0.04 K/uL (0-1) Nucleated Red Blood Cells 0.0 % (0.0-0.19) Sodium Level 142 mmol/L (136-145) Potassium Level 4.6 mmol/L (3.5-5.1) Chloride Level 106 mmol/L (101-111) Carbon Dioxide Level 30 mmol/L (21-32) Blood Urea Nitrogen 22 mg/dL (7-18) H Creatinine 1.0 mg/dL (0.5-1.0) Glomerular Filtration Rate Calc 66 mL/min (>90) Random Glucose 121 mg/dL (70-105) H Total Calcium 8.7 mg/dL (8.5-10.1) Troponin I High Sensitivity 16 ng/L (4-50) CHEST X-RAY NEGATIVE Labs Reviewed?: Yes EKG Comment: EKG NORMAL SINUS RHYTHM/HEART RATE 67/AXIS NORMAL/NO ECTOPY ED Course ED Course Orders Procedure Category Date Status Time Cbc With Differential LAB 08/29/24 Complete 12:46 Troponin I High LAB 08/29/24 Complete Sensitivity 12:46 12 Lead Ekg Tracing- EKG 08/29/24 Complete Technical 12:46 Lactated Ringers PHA 08/29/24 Complete 1000ml (Lactated 13:00 Chest 1vw RAD 08/29/24 Resulted 12:46 Basic Metabolic Panel LAB 08/29/24 Complete 12:46 Current Medications Medications (Trade) Dose Ordered Sig/Karey Route PRN Reason Start Time Stop Time Status Last Admin Dose Admin Lactated Ringer's 1,000 ml @ 0 mls/hr ONCE ONCE IV 08/29/24 13:00 08/29/24 13:01 DC 08/29/24 13:15 Vital Signs Date Time Temp Pulse Resp B/P (MAP) Pulse Ox O2 Delivery O2 Flow Rate FiO2 08/29/24 13:16 97.5 77 15 109/55 98 Room Air* 0 21 08/29/24 12:56 97.9 81 16 119/50 98 Room Air 0 1402/PATIENT WILL BE DISCHARGED HOME WITH WORKUP NEGATIVE CARDIAC WORKUP NEGATIVE EKG NORMAL PATIENT HAS STAGE 3 CHRONIC KIDNEY DISEASE WITH ATYPICAL C HEST PAIN WE WILL TOLD TO SEE HER DOCTOR HEART Score Response (Comments) Value Age: 45-65yrs (+1) 1 Risk Factors: 1-2 risk factors (+1) 1 Initial Troponin: Normal limit (0) 0 Total 2 Medical Decision Making MDM MDM: DIFFERENTIAL DIAGNOSIS: ACS/AMI/ELECTROLYTE IMBALANCE/DEHYDRATION/PNEUMONIA/BRONCHITIS/MUSCLE PAIN. RATIONALE: TESTS CONSIDERED AND ORDERED SECONDARY TO SHARED DECISION MAKING INCLUDE: EKG/LABS/RADIOLOGY PREVIOUS OUTSIDE RECORDS REVIEWED: OLD ER VISITS. RISK OF COMPLICATION AND/OR MORBIDITY OR MORTALITY OF PATIENT MANAGEMENT: NONE MEDICATIONS-PER MEDICATION RECONCILIATION NEED FOR HOSPITALIZATION: PATIENT DOES NOT MEET CRITERIA FOR HOSPITALIZATION. NO NEED FOR EMERGENCY MAJOR/MINOR SURGERY: NO THERE ARE NO SOCIAL CONCERNS WITH THIS PATIENT. PRESCRIPTION DRUG MANAGEMENT [id number] TYLENOL PRESCRIPTIONS WILL INCLUDE SYMPTOMATIC CARE PATIENT'S PRIOR EXTERNAL MEDICAL RECORDS FROM OTHER ER VISITS WERE REVIEWED BY ME INDICATED. PRIOR TESTING AND RESULTS FROM PREVIOUS VISITS WERE REVIEWED. PRIOR TESTS WERE TAKEN INTO ACCOUNT WITH MEDICAL DECISION MAKING AND RESOURCE UTILIZATION, INDEPENDENT HISTORIAN/HISTORIANS WERE USED TO OBTAIN COMPLETE MEDICAL HISTORY. I INDEPENDENTLY INTERPRETED THE TEST THAT WERE PERFORMED, RESULTS WERE REVIEWED BY ME AND CONSIDERED FINDINGS ON RADIOLOGY IF ORDERED. MEDICAL MANAGEMENT AND EXAMINATION INTERPRETATION DISCUSSIONS WERE HAD BY ME WITH OTHER QUALIFIED HEALTHCARE PROFESSIONALS INDICATED FOR THE PATIENT'S CARE. DX & DISP Disposition: Discharge Departure Impression: Primary Impression: Atypical chest pain Additional Impressions: Stage 3 chronic kidney disease, Vasovagal near syncope Condition: Stable Additional Instructions: FOLLOW-UP WITH PRIMARY CARE PROVIDER IN 1 TO 2 DAYS. TAKE MEDICATIONS DIRECTED HERE IN THE EMERGENCY ROOM. OKAY TO CONTINUE HOME MEDICATIONS UNLESS OTHERWISE DISCUSSED DURING YOUR VISIT IN THE EMERGENCY ROOM TODAY. RETURN TO YO UR NEAREST EMERGENCY ROOM IF SYMPTOMS WORSEN OR IF THERE IS NO IMPROVEMENT. CALL 911 IF YOU NEED IMMEDIATE ASSISTANCE. TAKE TYLENOL OR MOTRIN [id number] NEEDED AND IF NO CONTRAINDICATIONS ARE PRESENT. INCREASE ORAL HYDRATION. A WOUND CULTURE OR URINE CULTURE WAS ORDERED HERE IN THE EMERGENCY ROOM DEPARTMENT PLEASE FOLLOW-UP WITH PRIMARY CARE PROVIDER AND ADVISE THEM TO GET REPEAT PORTS FROM OUR FACILITY. IF YOU HAD ANY ENDY WRAP/SPLINTS THAT WERE APPLIED HERE, PLEASE DO NOT REMOVE THEM UNTIL YOU SEE YOUR PRIMARY CARE OR SPECIALTY. INCREASE YOUR FLUID INTAKE. FOLLOW UP WITH YOUR PRIMARY CARE DOCTOR NEEDED FOR MANAGEMENT OF YOUR SYMPTOMS TO INCLUDE YOUR CHEST PAIN. TAKE TYLENOL OR MOTRIN [id number] NEEDED FOR PAIN. Referrals: CAMI FRANCOIS NP (PCP) Time of Disposition: 14:06 I have reviewed the case, and I agree with, Diagnosis and Plan LORENE WOOTEN NP Aug 29, 2024 12:49
[2024-08-29 13:11] LABS: CREATININE 1.0 mg/dL (0.5-1.0); GLOMERULAR FILTR. RATE CALC 66.0 mL/min (>90); GLUCOSE,RANDOM 121.0 mg/dL (70-105); IMMATURE GRANULOCYTE ABSOLUTE 0.04 K/uL (0-1); NUCLEATED RED BLOOD CELLS 0.0 % (0.0-0.19); PLATELET COUNT (AUTO) 218 K/uL (130-400); RED BLOOD CELL COUNT(AUTO) 4.07 MIL/uL (4.00-5.50); RED CELL DISTRIBUTION WIDTH 13.2 % (11.0-15.5); SODIUM SERUM 142.0 mmol/L (136-145); UREA NITROGEN, BLOOD 22.0 mg/dL (7-18); WHITE BLOOD COUNT (AUTO) 7.1 K/uL (4.8-10.8)
[2024-08-29] MEDS: LACTATED RINGERS 1000ML 1,000 ML IV ONE (13:15)
--- NOTE | 2024-08-29 13:26 | HMCIMG ---
EXAM: CR Chest, 1 View. CLINICAL HISTORY: CHEST PAIN COMPARISON: None provided. FINDINGS: LUNGS: There is no mass, infiltrate, or acute pulmonary abnormality. PLEURAL SPACES: No pleural effusion or pneumothorax. MEDIASTINUM: The cardiomediastinal silhouette is within normal limits. BONES: No acute osseous abnormality. IMPRESSION: No acute cardiopulmonary pathology is evident. /[place]
--- NOTE | 2024-08-29 13:38 | EKG ---
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
[2024-08-29 14:28] VITALS: BP 127/56; PULSE 73; RESP 14; TEMP 98.3; O2SAT 97
--- NOTE | 2024-08-29 14:30 | NUR ---
PT AAOX4 STABLE NO DISTRESS, VITALS WNL NO C/O PAIN PT GIVEN INSTRUCTIONS FOR HOME, NO NEW MEDICATIONS AT THIS TIME. PT IV REMOVED DRIVEN HOME BY SPOUSE.
== END 2024-08-29 14:33 | disposition home or self-care (01) ==
LOC: EDH 12:43
DX: I12.9 Hypertensive chronic kidney disease with stage 1 through stage 4 chronic kidney disease, or unspecified chronic kidney disease (principal); N18.30 Chronic kidney disease, stage 3 unspecified; R07.89 Other chest pain; Z79.899 Other long term (current) drug therapy
CPT/HCPCS: 99285; 71045; 84484; 80048; 85025; 36415; 93005; J7120